=== PATIENT | male | born 1950 | race Caucasian/White ===

== ENCOUNTER 2020-07-15 23:32 | Inpatient (IN) | payer MEDICARE, MEDICAID, SELFPAY ==
[2020-07-18 03:59] VITALS: BMI 25.0
[2020-07-19] VITALS: BP 135/81; PULSE 88; RESP 18; TEMP 36.6; O2SAT 96
[2020-07-19] MEDS: cefEPime HCl 2 GM in 0.9 % Sodium Chloride 50 ML IV ×2 (01:05→08:57)
[2020-07-19 04:00] VITALS: BP 108/70; PULSE 78; RESP 18; TEMP 36.6; O2SAT 99
[2020-07-19 06:30] LABS: INTERNATIONAL NORM RATIO 1.4 (0.9-1.1); Prothrombin Time 16.1 SEC (10.8-13.0)
[2020-07-19] MEDS: Albuterol/Iprat 2.5/0.5MG 3 ML AMPUL.NEB INHALE ×3 (07:56→15:04)
[2020-07-19 08:00] VITALS: BP 120/72; PULSE 88; RESP 20; TEMP 36.6; O2SAT 97
[2020-07-19] MEDS: Gabapentin 100 MG CAPSULE PO (09:05)
[2020-07-19] MEDS: traMADoL HCL 50 MG TABLET PO (09:05)
[2020-07-19 09:07] VITALS: BP 135/81; PULSE 88
[2020-07-19] MEDS: lisinopriL 5 MG TABLET PO (09:07)
[2020-07-19] MEDS: Furosemide 20 MG TABLET PO (09:07)
[2020-07-19] MEDS: Aspirin 81 MG TAB.CHEW 162 MG PO (09:07)
[2020-07-19] MEDS: Cyanocobalamin (Vitamin B-12) 1,000 MCG TABLET 1000 MCG PO (09:07)
[2020-07-19] MEDS: 0.9 % Sodium Chloride Flush 3 ML SYRINGE 2 ML IVFLUSH ×2 (09:07)
[2020-07-19] MEDS: Finasteride 5 MG TABLET PO (09:07)
[2020-07-19 09:08] VITALS: BP 135/81; PULSE 88
[2020-07-19] MEDS: dilTIAZem HCL CD 120 MG CAP.ER.DEG PO (09:08)
--- NOTE | 2020-07-19 11:40 | PM.DS ---
DS: Providers Provider Date of admission: 07/15/20 23:32 Primary care physician: Rajinder Jean MD Consults: 07/18/20 04:05 Consult to Infectious Diseases Routine Consulting Provider: Serenity Espinosa Reason for consultation: pseudomonas UTI Has provider been notified: Yes 07/18/20 04:06 Consult to Cardiology Routine Consulting Provider: Serenity Espinosa Reason for consultation: aflutter Has provider been notified: Yes 07/19/20 09:59 Consult to Pulmonology Routine Consulting Provider: Aidan Aguayo Reason for consultation: copd DS: Diagnosis Discharge Diagnosis (1) Atrial fibrillation with RVR: Status: Acute (2) Sepsis: Status: Acute (3) UTI (urinary tract infection): Status: Acute (4) Urinary retention: Status: Acute DS: Summary Hospital Course Hospital Course: 70-year-old male admitted with sepsis secondary to UTI patient was started on cefepime and blood culture and urine culture were sent, sepsis resolved blood cultures were negative so urine culture grew Pseudomonas, id was consulted recommended switched to p.o. Levaquin on discharge, patient was also noted to have recurrent episodes of a flutter and converting spontaneously into sinus rhythm, with heart rate ranging between 70s to 150s, cardiology was consulted patient was started on Cardizem , heart rate improved and remained stable, discussed with pulmonology for patient's COPD Dr. Aguayo, patient was started on Breo and continued on nebulizer, patient will follow up cardiology Dr. Rodriguez and pulmonology Dr. Aguayo as outpatient, patient was stable evaluated by Physical therapy recommended short-term rehab, patient was discharged to short-term rehab Status at Discharge Functional status at discharge: independent ambulation Time Spent with Patient Time attestation: Total time spent providing and/or coordinating discharge services: Time spent: Greater than 30 minutes Physical Exam Vital Signs and I&O and Narrative: Vital Signs and I&O: Vital Signs Temp 98 F 07/19/20 08:00 Pulse 88 07/19/20 09:08 Resp 20 07/19/20 08:00 BP 135/81 07/19/20 09:08 Pulse Ox 97 07/19/20 08:00 Intake & Output 07/18/20 07/19/20 07/19/20 18:59 06:59 18:59 Intake Total 50 / 50 50 / 50 Output Total 340 / 340 Balance -290 / -290 50 / 50 Urine Output (Aver age ml/kg/hr) 0.33 0.33 Intake: Intake, IV Amoun t 50 / 50 50 / 50 cefEPime HCl 2 gm In 0.9 % 50 / 50 50 / 50 Sodium Chlorid e 50 ml @ 100 mls /hr IV Q8H [facility] Rx#:[id number] Output: Output, Urine Am ount 340 / 340 Other: Urine johnson Urine Color Yellow Body Mass Index 25.0 Const: General: comfortable Neck: Neck: Yes normal visual inspection Resp: Auscultation: diminished lung sounds Cardio: Jugular venous distension: no JVD GI: Auscultation: normal bowel sounds DS: Data Data Completed and Pending Labs on day of discharge: Labs from last 24 hours 07/19/20 07/19/20 07/18/20 07:00 05:30 05:47 WBC RBC Hgb Hct MCV MCH MCHC RDW Coeff of Ivan Plt Count MPV Immature Gran % (Auto) Neut % (Auto) Lymph % (Auto) Hughes % (Auto) Eos % (Auto) Baso % (Auto) Abs Immat Gran (auto) Absolute Lymphs (auto) Absolute Monos (auto) Absolute Eos (auto) Absolute Basos (auto) Absolute Nucleated RBC Nucleated RBC % (auto) Absolute Neutrophils PT Not Rcvd 16.1 H 14.5 H INR Not Rcvd 1.4 H 1.2 H Sodium Potassium Chloride Bicarbonate Anion Gap BUN Creatinine Estimated Creat Clear Est GFR (Non-Af Amer) Random Glucose Fasting Glucose Calcium 07/17/20 07/17/20 07/17/20 05:50 05:50 05:50 WBC 8.1 RBC 3.41 L Hgb 8.9 L Hct 29.6 L MCV 86.8 MCH 26.1 L MCHC 30.1 L RDW Coeff of Ivan 17.2 H Plt Count 328 MPV 9.3 L Immature Gran % (Auto) 0.2 Neut % (Auto) 75.7 H Lymph % (Auto) 11.5 L Hughes % (Auto) 9.0 Eos % (Auto) 3.2 Baso % (Auto) 0.4 Abs Immat Gran (auto) 0.02 Absolute Lymphs (auto) 0.9 L Absolute Monos (auto) 0.7 Absolute Eos (auto) 0.3 Absolute Basos (auto) 0.0 Absolute Nucleated RBC 0.000 Nucleated RBC % (auto) 0.0 Absolute Neutrophils 6.1 PT 14.8 H INR 1.2 H Sodium 139 Potassium 4.4 Chloride 107 Bicarbonate 25 Anion Gap 11 L BUN 14 Creatinine 0.71 Estimated Creat Clear 110.9 Est GFR (Non-Af Amer) > 60 Random Glucose 100 Fasting Glucose Calcium 8.3 L 07/16/20 07/16/20 07/16/20 05:59 05:49 05:49 WBC 12.9 H RBC 3.28 L Hgb 8.5 L Hct 28.1 L MCV 85.7 MCH 25.9 L MCHC 30.2 L RDW Coeff of Ivan 17.2 H Plt Count 323 MPV 9.2 L Immature Gran % (Auto) 0.5 H Neut % (Auto) 80.9 H Lymph % (Auto) 8.5 L Hughes % (Auto) 8.9 Eos % (Auto) 1.0 Baso % (Auto) 0.2 Abs Immat Gran (auto) 0.06 H Absolute Lymphs (auto) 1.1 L Absolute Monos (auto) 1.2 Absolute Eos (auto) 0.1 Absolute Basos (auto) 0.0 Absolute Nucleated RBC 0.000 Nucleated RBC % (auto) 0.0 Absolute Neutrophils 10.5 H PT 16.7 H D INR 1.4 H Sodium 135 Potassium 4.1 Chloride 107 Bicarbonate 23 Anion Gap 9 L BUN 19 H Creatinine 0.72 Estimated Creat Clear 109.4 Est GFR (Non-Af Amer) > 60 Random Glucose Fasting Glucose 95 Calcium 7.9 L D Discharge Plan Discharge Anticipated Discharge Date/Time: 07/19/20 11:19 Patient Disposition: Xfer SNF Referrals: [facility] [Other] Po,Rajinder Lopez MD [Primary Care Provider] - Discharge Medications: New warfarin [Jantoven] 6 mg Tablet 6 mg PO DAILY@1800 10 Days Qty: 0 RF: 0 Breo Ellipta 100-25 mcg/dose Blister With Device 1 ea inhalation RDAILY Qty: 1 RF: 0 diltiazem HCl [Cardizem CD] 180 mg capsule,extended release 24hr 180 mg PO DAILY Qty: 30 RF: 0 atorvastatin 20 mg Tablet 20 mg PO BEDTIME 30 Days Qty: 30 RF: 0 levofloxacin 500 mg tablet 500 mg PO Q24H Qty: 10 RF: 0 Continued ipratropium-albuterol 0.5 mg-3 mg(2.5 mg base)/3 mL Solution For Nebulization 3 ml INHALATION QID RF: 0 cyanocobalamin (vitamin B-12) 1,000 mcg Tablet 1,000 mcg PO DAILY RF: 0 tramadol 50 mg Tablet 50 mg PO TID RF: 0 tamsulosin [Flomax] 0.4 mg Capsule 0.4 mg PO DAILY@1700 RF: 0 aspirin 81 mg Tablet 162 mg PO DAILY RF: 0 lisinopril 5 mg Tablet 5 mg PO DAILY RF: 0 furosemide 20 mg Tablet 20 mg PO QAM RF: 0 gabapentin 100 mg Capsule 100 mg PO DAILY RF: 0 finasteride [Proscar] 5 mg Tablet 5 mg PO DAILY RF: 0 Discontinued simvastatin 40 mg Tablet 40 mg PO BEDTIME RF: 0 warfarin [Coumadin] 4 mg Tablet 4 mg PO DAILY@1700 RF: 0 Discharge Orders: Discharge Order (Routine); Ordered 07/19/20 Ordered By: Nando Mata Activity on Discharge: As tolerated Discharge Date/Time: 07/19/20 16:22 Visit Report Forms: Patient Portal Discharge page Care Plan Goals: See discharge instructions Plan of Treatment: see discharge instructions
[2020-07-19 12:00] VITALS: BP 129/81; PULSE 98; RESP 20; TEMP 37.1; O2SAT 97
--- NOTE | 2020-07-19 16:30 | PC.NURSE ---
IV REMOVED, DSG CDI. TELEMETRY PACK REMOVED AND PLACED ON RACK BEHIND DRY KILN BURNER DESK. REPORT CALLED TO CEASAR RON, GIVE TO NURSE ABDIRASHID. PT TX BY AMBULANCE.
--- NOTE | 2020-07-19 21:12 | CONS_ITS ---
DATE OF SERVICE: 07/19/2020 CHIEF COMPLAINT: Shortness of breath. HISTORY OF PRESENT ILLNESS: Mr. East is a 70-year-old gentleman, known COPD, O2 dependent emphysema with a history of aortic aneurysm, status post endovascular stenting; hypertension; who apparently was in usual state of health until recently when he started developing worsening constitutional symptoms along with worsening respiratory symptoms. He was confused. He also had some fevers. He was brought to the [facility] ED, and he was treated for Pseudomonas UTI. The patient also had COPD exacerbation. During the hospital course, he also developed cardiac arrhythmias with atrial fibrillation and a flutter. The patient was seen by Cardiology. Currently, he is on rate-controlling agents. The patient has been doing better. Currently, he is awaiting pulmonary rehabilitation. He is currently on oxygen. He is concerned about his respiratory status. Still complaining of dyspnea on exertion with minimal activity. Moderate in severity. REVIEW OF SYSTEMS: Ten systems reviewed. Denies any PUBLISHING EDITOR symptoms. Complains of respiratory and cardiac symptoms. Complains of symptoms. Denies any GI symptoms. Complains of generalized weakness. The rest of the 10-organ system is negative. PAST MEDICAL HISTORY: 1. COPD, O2 dependent. 2. Hyponatremia. 3. Hematuria. 4. AAA. 5. Abdominal aortic aneurysm, status post repair. 6. Abdominal aortic thrombosis. 7. Hypertension. PAST SURGICAL HISTORY: Hernia repair, AAA repair. FAMILY HISTORY: Hypertension. SOCIAL HISTORY: Former smoker. Lives with his son. ALLERGIES: PLEASE REFER TO THE MAR FOR THE FULL LIST. MEDICATIONS: Currently on Coumadin, diltiazem, cefepime, Zofran, lisinopril, gabapentin, aspirin, Lasix, DuoNeb. PHYSICAL EXAMINATION: VITAL SIGNS: Stable, 2 L, saturating 97%. GENERAL: Pleasant gentleman, in no acute distress. HEENT: Pupils equal and reactive to light. Oropharynx clear. LUNGS: Diminished. Some expiratory wheezing noted. No rhonchi appreciated. No crackles appreciated. CARDIAC: Irregularly regular. ABDOMEN: Positive bowel sounds. Soft. EXTREMITIES: No clubbing, cyanosis. LABORATORY DATA: Sodium 131, BUN 25, creatinine 1.05. His white count 6.3, hemoglobin 9.7, platelet count 452. DIAGNOSTIC DATA: X-ray personally reviewed by me. Evidence of TRAM track and suggesting chronic bronchitis, hyperinflation. Also, had a CT scan of the abdomen with some lung windows demonstrating some bronchitis and likely bronchiectatic airways. ASSESSMENT: Mr. East is a 70-year-old gentleman, known chronic obstructive pulmonary disease, presenting with multiple complaints including fevers, confusion, shortness of breath, now being treated for chronic obstructive pulmonary disease exacerbation. IMPRESSION: 1. Chronic obstructive pulmonary disease exacerbation. 2. Acute on chronic hypoxic respiratory failure secondary to chronic obstructive pulmonary disease exacerbation emphysema, likely also has a component of chronic bronchitis and bronchiectasis. 3. Tachyarrhythmias with atrial fibrillation, atrial flutter, currently on rate-controlling agents. We have to be careful with the beta agonist medications for him. 4. Abnormal chest x-ray. RECOMMENDATIONS: 1. Continue with current respiratory regimen. We will add Spiriva and Breo to his regimen. 2. Continue with the oxygen to maintain a pulse ox above 88%. 3. The patient needs to follow up his abnormal chest x-rays when he comes into the office. 4. He also will need additional evaluation with pulmonary function studies and a 6-minutes walk test to assess his oxygen requirements as an outpatient. 5. We will make sure that once he is discharged to the hospital after he goes to rehab, then is an established patient in our office, so we can follow him closely with his ongoing respiratory issues. Further recommendation based on forthcoming data. MD ISIDRA Jenkins/LIV / [id number]
== END 2020-07-19 16:22 | disposition skilled nursing facility (03) | DRG 871 ==
PROVIDERS: Admitting Provider Internal Medicine; Emergency Provider Emergency Medicine; PCP Internal Medicine; Visit Provider Internal Medicine
DX: A41.9 Sepsis, unspecified organism (principal); G92 Toxic encephalopathy; N39.0 Urinary tract infection, site not specified; B96.5 Pseudomonas (aeruginosa) (mallei) (pseudomallei) as the cause of diseases classified elsewhere; J44.9 Chronic obstructive pulmonary disease, unspecified; R31.9 Hematuria, unspecified; I48.0 Paroxysmal atrial fibrillation; Z20.828 Contact with and (suspected) exposure to other viral communicable diseases; Z79.01 Long term (current) use of anticoagulants; Z79.82 Long term (current) use of aspirin; Z79.891 Long term (current) use of opiate analgesic; Z79.899 Other long term (current) drug therapy; Z99.81 Dependence on supplemental oxygen; Z66 Do not resuscitate
CPT/HCPCS: 36415; 71045; 80048; 80051; 80076; 81001; 82565; 82947; 83605; 83690; 84520; 85025; 85027; 85610; 87040; 87077; 87088; 87186; 93005; 94640; 96361; 96374; 97116; 97162; 97166; 97530; 99285; J0692; J2543; U0003

== ENCOUNTER 2020-07-20 06:57 | Outpatient (REF) | payer MEDICARE, MEDICAID, SELFPAY ==
[2020-07-20 07:33] LABS: Hematocrit 31.1 % (42-52); Hemoglobin 9.4 g/dl (14.0-18.0); Mean Corpuscular HGB Conc 30.2 g/dl (31.0-36.0); Mean Corpuscular Volume 86.1 fL (80-98); Mean Platelet Volume 9.3 fL (9.4-12.4); Platelet Count 377 X10*3/uL (160-400); Red Blood Count 3.61 X10*6/uL (4.60-5.80); Red Cell Distribution Width 17.1 % (11.0-16.0); White Blood Count 7.8 X10*3/uL (4.8-10.8)
[2020-07-20 07:52] LABS: INTERNATIONAL NORM RATIO 1.4 (0.9-1.1); Prothrombin Time 16.6 SEC (10.8-13.0)
[2020-07-20 08:03] LABS: Alanine Aminotransferase 18 U/L (0-40); Albumin Level 3.4 g/dL (3.5-5.0); Alkaline Phosphatase 93 U/L (39-117); Anion Gap 10 (12-20); Aspartate Amino Transferase 13 U/L (5-37); Bilirubin Total 0.2 mg/dL (0.0-1.0); Blood Urea Nitrogen 19 mg/dL (9-16); Calcium 8.6 mg/dL (8.4-10.2); Carbon Dioxide 29 mmol/L (22-29); Chloride 104 mmol/L (96-108); Estimated Glomerular Filt Rate > 60; Glucose Random 99 mg/dL (60-115); Potassium 4.1 mmol/l (3.3-5.1); Sodium 139 mmol/L (135-145); Total Protein 5.9 g/dL (6.5-8.0)
== END 2020-07-20 06:58 | disposition home or self-care (01) ==
LOC: HO.MMNH1L 06:57
PROVIDERS: Visit Provider Family Medicine
DX: N39.0 Urinary tract infection, site not specified (principal)
CPT/HCPCS: 36415; 80053; 85027; 85610

== ENCOUNTER 2020-07-23 | Outpatient (REF) | payer MEDICARE, MEDICAID, SELFPAY ==
[2020-07-23 07:49] LABS: Hematocrit 31.1 % (42-52); Hemoglobin 9.4 g/dl (14.0-18.0); Mean Corpuscular HGB Conc 30.2 g/dl (31.0-36.0); Mean Corpuscular Hemoglobin 26.2 pg (27.0-33.0); Mean Corpuscular Volume 86.6 fL (80-98); Mean Platelet Volume 9.2 fL (9.4-12.4); Platelet Count 378 X10*3/uL (160-400); Red Blood Count 3.59 X10*6/uL (4.60-5.80); Red Cell Distribution Width 17.2 % (11.0-16.0); White Blood Count 5.5 X10*3/uL (4.8-10.8)
[2020-07-23 07:57] LABS: INTERNATIONAL NORM RATIO 1.8 (0.9-1.1)
[2020-07-23 08:17] LABS: Alanine Aminotransferase 21 U/L (0-40); Albumin Level 3.4 g/dL (3.5-5.0); Alkaline Phosphatase 88 U/L (39-117); Anion Gap 11 (12-20); Aspartate Amino Transferase 14 U/L (5-37); Bilirubin Total 0.2 mg/dL (0.0-1.0); Blood Urea Nitrogen 14 mg/dL (9-16); Calcium 8.3 mg/dL (8.4-10.2); Carbon Dioxide 29 mmol/L (22-29); Chloride 103 mmol/L (96-108); Estimated Glomerular Filt Rate > 60; Glucose Random 84 mg/dL (60-115); Potassium 4.5 mmol/l (3.3-5.1); Sodium 138 mmol/L (135-145); Total Protein 5.8 g/dL (6.5-8.0)
== END 2020-07-23 00:01 | disposition home or self-care (01) ==
LOC: HO.MMNH1L
PROVIDERS: Visit Provider Family Medicine
DX: N39.0 Urinary tract infection, site not specified (principal)
CPT/HCPCS: 36415; 80053; 85027; 85610

== ENCOUNTER 2020-07-25 06:48 | Outpatient (REF) | payer MEDICARE, MEDICAID, SELFPAY ==
[2020-07-25 07:46] LABS: Appearance Urine CLOUDY; Color Urine YELLOW; Glucose Urine UA NEG (NEG); Leukocyte Esterase Urine NEG (NEG); Nitrite Urine NEG (NEG); Urine Blood 3+ (NEG); Urine Ketones NEG (NEG); Urine Protein TRACE MG/DL (NEG-TRACE)
[2020-07-25 07:49] LABS: INTERNATIONAL NORM RATIO 1.5 (0.9-1.1); Prothrombin Time 17.8 SEC (10.8-13.0)
[2020-07-25 07:57] LABS: RBC Urine TNTC /HPF (0)
[2020-07-25 07:58] LABS: Amorphous Sediment Urine 1+ /LPF; Mucus Urine 1+ /LPF; Squamous Epithelial Cell Urine TRACE /LPF
== END 2020-07-25 06:49 | disposition home or self-care (01) ==
LOC: HO.MMNH1L 06:48
PROVIDERS: Visit Provider Family Medicine
DX: R31.9 Hematuria, unspecified (principal); I48.91 Unspecified atrial fibrillation
CPT/HCPCS: 36415; 81001; 81003; 85610; 87086

== ENCOUNTER 2020-07-30 | Outpatient (REF) | payer MEDICARE, MEDICAID, SELFPAY ==
[2020-07-30 06:23] LABS: INTERNATIONAL NORM RATIO 1.7 (0.9-1.1); Prothrombin Time 19.7 SEC (10.8-13.0)
[2020-07-30 06:24] LABS: Hematocrit 33.7 % (42-52); Hemoglobin 10.1 g/dl (14.0-18.0); Mean Corpuscular Hemoglobin 25.8 pg (27.0-33.0); Mean Corpuscular Volume 86.2 fL (80-98); Mean Platelet Volume 8.7 fL (9.4-12.4); Platelet Count 510 X10*3/uL (160-400); Red Blood Count 3.91 X10*6/uL (4.60-5.80); Red Cell Distribution Width 17.5 % (11.0-16.0); White Blood Count 6.2 X10*3/uL (4.8-10.8)
[2020-07-30 06:55] LABS: Anion Gap 11 (12-20); Blood Urea Nitrogen 13 mg/dL (9-16); Calcium 8.7 mg/dL (8.4-10.2); Carbon Dioxide 31 mmol/L (22-29); Chloride 100 mmol/L (96-108); Estimated Glomerular Filt Rate > 60; Glucose Random 91 mg/dL (60-115); Potassium 4.9 mmol/l (3.3-5.1); Sodium 137 mmol/L (135-145)
== END 2020-07-30 00:01 | disposition home or self-care (01) ==
LOC: HO.MMNH1L
PROVIDERS: Visit Provider Family Medicine
DX: I48.91 Unspecified atrial fibrillation (principal)
CPT/HCPCS: 36415; 80048; 85027; 85610

== ENCOUNTER 2020-08-01 18:46 | Emergency (ER) | payer MEDICARE, MEDICAID, SELFPAY ==
[2020-08-01 19:04] VITALS: BP 117/79; BP 130/90; PULSE 74; PULSE 84; RESP 16; TEMP 37.2; O2SAT 100; BMI 23.1
--- NOTE | 2020-08-01 19:28 | ED_ITS ---
HPI - Psych General Chief Complaint: Psychiatric Symptoms Stated Complaint: SECTION 12/SI Time Seen by Provider: 08/01/20 19:12 Source: patient and EMS Mode of arrival: EMS Limitations: no limitations History of Present Illness HPI Narrative: patient with benign prostate hypertrophy with indwelling Sauceda catheter since 07/08 feels overwhelmed unable to manage and depressed today when his son was leaving the house he said goodbye and when he came back within 5 minutes patient took his oxygen off and confirmed that he wanted to . Patient also had Pseudomonas in urine and has taken Levaquin patient discharged home on 07/19 for UTI MD complaint: suicidal ideation and feels depressed Onset (ago): day(s) ( several) Duration: constant History of same: No Related Data Home Medications Medication Instructions Recorded Confirmed aspirin 162 mg PO DAILY 07/18/20 07/18/20 cyanocobalamin (vitamin B-12) 1,000 mcg PO DAILY 07/18/20 07/18/20 finasteride [Proscar] 5 mg PO DAILY 07/18/20 07/18/20 furosemide 20 mg PO QAM 07/18/20 07/18/20 gabapentin 100 mg PO DAILY 07/18/20 07/18/20 ipratropium-albuterol 3 ml INHALATION QID 07/18/20 07/18/20 lisinopril 5 mg PO DAILY 07/18/20 07/18/20 tamsulosin [Flomax] 0.4 mg PO DAILY@1700 07/18/20 07/18/20 tramadol 50 mg PO TID 07/18/20 07/18/20 Previous Rx's Medication Instructions Recorded atorvastatin 20 mg PO BEDTIME 30 Days #30 tab 07/19/20 diltiazem HCl [Cardizem CD] 180 mg PO DAILY #30 cap 07/19/20 fluticasone furoate-vilanterol 1 ea INHALATION RDAILY #1 ea 07/19/20 [Breo Ellipta] levofloxacin 500 mg PO Q24H #10 tab 07/19/20 warfarin [Jantoven] 6 mg PO DAILY@1800 10 Days #0 tab 07/19/20 Allergies Allergy/AdvReac Type Severity Reaction Status Date / Time nicotine Allergy Unknown patch Verified 05/21/20 00:00 No Known Allergies Allergy Unknown unknown Unverified 07/05/20 17:19 [NO KNOWN ALLERGIES] Review of Systems Review of Systems: Constitutional : No Fever, No Chills ENT/Mouth : No Ear Pain, No Nasal Congestion, No sore throat Eyes: No Eye Pain, No Swelling, No Redness Cardiovascular : No Chest Pain, No SOB Respiratory : No Cough, No Sputum, No Dyspnea Gastrointestinal : No Nausea, No Vomiting, No Diarrhea, No Hematochezia, No Melena Genitourinary : urinary retention with indwelling Sauceda catheter Musculoskeletal : No Myalgias Skin : No Skin Lesions, No rash Neuro : No Weakness, No Numbness, No Paresthesias, No Dizziness, No Headache Psych : positive Anxiety, positive Depression, positive SI Heme/Lymph: No Lymphadenopathy Endocrine : No Polyuria, No Polydipsia PMFSH Past Medical History Medical History Atrial fibrillation COPD (chronic obstructive pulmonary disease) Emphysema of lung Enlarged prostate Sauceda catheter in place Social History Social History Alcohol intake: never Smoking Status: Former smoker Use of substances other than those prescribed or required for medical reasons: No Advance Directives: No Advance Directives Information Provided: No Advance Directives Date on File: 07/24/05 Physical Exam Vital Signs: Vital Signs: Vital Signs Temp Pulse Resp BP Pulse Ox 08/02/20 01:03 67 20 97/63 100 08/01/20 22:00 97.6 F 88 16 107/70 100 08/01/20 20:00 98.5 F 94 17 108/59 L 99 08/01/20 19:04 99 F 84 16 117/79 100 Body Mass Index 23.1 Appearance: Alert. Oriented X3. No acute distress. Eyes: Pupils equal, round and reactive to light. ENT: Pharynx normal. Neck: Normal inspection. Neck supple. CVS: Normal heart rate and rhythm. Pulses normal. Respiratory: No respiratory distress. Breath sounds normal. Abdomen: Soft and nontender. indwelling Sauceda catheter Skin: Skin warm and dry. Normal skin color. Normal skin turgor. Extremities: No lower extremity edema. Good range of movement patient feel depressed and suicidal Neuro: Oriented X 3. No motor deficit. No sensory deficit. Course Course Course Narrative: case seen by care team came here for anxiety depression and suicidal feeling at home at this time patient denies any suicidal feeling after discussion with care team it is felt that patient needs some help at home and maybe need case management to see him in the morning patient's labs are stable has a chronic UTI which is getting better on p.o. Levaquin Reevaluation(s) Reevaluation #1: patient signed out to Dr. Haji Time: 01:45 MDM - Psych Restraints Face to Face Assessment: Face to Face Assessment: Current Situation: After assessment of the patient, a review of the pertinent medical record and a discussion with nursing staff, I feel the patient requires a restrain intervention. Reaction To: [] Medical Condition: [] Behavioral State: [] Continued Need: [] Lab Data Result diagrams: 08/01/20 20:15 08/01/20 20:15 Labs: Lab Results 08/01/20 08/01/20 08/01/20 Range/Units 20:15 20:15 20:15 WBC 7.4 (4.8-10.8) X10*3/uL RBC 4.02 L (4.60-5.80) X10*6/uL Hgb 10.3 L (14.0-18.0) g/dl Hct 33.8 L (42-52) % MCV 84.1 (80-98) fL MCH 25.6 L (27.0-33.0) pg MCHC 30.5 L (31.0-36.0) g/dl RDW 17.4 H (11.0-16.0) % Plt Count 464 H (160-400) X10*3/uL MPV 8.6 L (9.4-12.4) fL Immature Gran % (Auto) 0.3 (0.0-0.4) % Neut % (Auto) 65.8 (45-73) % Lymph % (Auto) 19.6 L (20-40) % [place] % (Auto) 12.2 H (2-11) % Eos % (Auto) 1.6 (0-4) % Baso % (Auto) 0.5 (0-2) % Lymph # (Auto) 1.5 (1.2-4.9) X10*3/uL [place] # (Auto) 0.9 (0.1-1.2) X10*3/uL Eos # (Auto) 0.1 (0.0-0.4) X10*3/uL Baso # (Auto) 0.0 (0.0-0.2) X10*3/uL Abs Immat Gran (auto) 0.02 (0.00-0.03) X10*3/uL Absolute Neuts (auto) 4.9 (2.0-8.3) X10*3/uL Absolute Nucleated RBC 0.000 (0.0-0.012) X10*3/uL Nucleated RBC % (auto) 0.0 (0.0-0.2) /100WBC PT 26.4 H D (10.8-13.0) SEC INR 2.2 H (0.9-1.1) Sodium (135-145) mmol/L Potassium (3.3-5.1) mmol/l Chloride (96-108) mmol/L Carbon Dioxide (22-29) mmol/L Anion Gap (12-20) BUN (9-16) mg/dL Creatinine (0.5-1.4) mg/dL Estim Creat Clear Calc Estimated GFR Random Glucose (60-115) mg/dL Lactic Acid 0.8 (0.5-2.0) mmol/L Calcium (8.4-10.2) mg/dL Total Bilirubin (0.0-1.0) mg/dL Direct Bilirubin (0.0-0.5) mg/dL AST (5-37) U/L ALT (0-40) U/L Alkaline Phosphatase (39-117) U/L Total Protein (6.5-8.0) g/dL Albumin (3.5-5.0) g/dL Urine Color Urine Appearance Urine pH (5.0-8.0) Ur Specific [place] (1.005-1.025) Urine Protein (NEG-TRACE) MG/DL Urine Glucose (UA) (NEG) MG/DL Urine Ketones (NEG) MG/DL Urine Blood (NEG) Urine Nitrite (NEG) Ur Leukocyte Esterase (NEG) Urine RBC (0) /HPF Urine WBC (0-4) /HPF Ur Squamous Epith Cells /LPF Urine Bacteria /LPF 08/01/20 08/01/20 Range/Units 20:15 20:15 WBC (4.8-10.8) X10*3/uL RBC (4.60-5.80) X10*6/uL Hgb (14.0-18.0) g/dl Hct (42-52) % MCV (80-98) fL MCH (27.0-33.0) pg MCHC (31.0-36.0) g/dl RDW (11.0-16.0) % Plt Count (160-400) X10*3/uL MPV (9.4-12.4) fL Immature Gran % (Auto) (0.0-0.4) % Neut % (Auto) (45-73) % Lymph % (Auto) (20-40) % [place] % (Auto) (2-11) % Eos % (Auto) (0-4) % Baso % (Auto) (0-2) % Lymph # (Auto) (1.2-4.9) X10*3/uL [place] # (Auto) (0.1-1.2) X10*3/uL Eos # (Auto) (0.0-0.4) X10*3/uL Baso # (Auto) (0.0-0.2) X10*3/uL Abs Immat Gran (auto) (0.00-0.03) X10*3/uL Absolute Neuts (auto) (2.0-8.3) X10*3/uL Absolute Nucleated RBC (0.0-0.012) X10*3/uL Nucleated RBC % (auto) (0.0-0.2) /100WBC PT (10.8-13.0) SEC INR (0.9-1.1) Sodium 133 L (135-145) mmol/L Potassium 4.4 (3.3-5.1) mmol/l Chloride 98 (96-108) mmol/L Carbon Dioxide 27 (22-29) mmol/L Anion Gap 12 (12-20) BUN 19 H (9-16) mg/dL Creatinine 0.81 (0.5-1.4) mg/dL Estim Creat Clear Calc 96.6 Estimated GFR > 60 Random Glucose 94 (60-115) mg/dL Lactic Acid (0.5-2.0) mmol/L Calcium 8.9 (8.4-10.2) mg/dL Total Bilirubin 0.3 (0.0-1.0) mg/dL Direct Bilirubin 0.2 (0.0-0.5) mg/dL AST 17 (5-37) U/L ALT 23 (0-40) U/L Alkaline Phosphatase 93 (39-117) U/L Total Protein 6.7 (6.5-8.0) g/dL Albumin 4.0 (3.5-5.0) g/dL Urine Color YELLOW Urine Appearance CLOUDY Urine pH 6.0 (5.0-8.0) Ur Specific [place] >= 1.030 H (1.005-1.025) Urine Protein 2+ H (NEG-TRACE) MG/DL Urine Glucose (UA) NEG (NEG) MG/DL Urine Ketones NEG (NEG) MG/DL Urine Blood 3+ H (NEG) Urine Nitrite NEG (NEG) Ur Leukocyte Esterase 1+ H (NEG) Urine RBC 30-49 H (0) /HPF Urine WBC 1-4 (0-4) /HPF Ur Squamous Epith Cells NONE /LPF Urine Bacteria 1+ /LPF Discharge Plan Discharge Clinical Impression: Depression with suicidal ideation, Chronic UTI Prescriptions: No Action ipratropium-albuterol 0.5 mg-3 mg(2.5 mg base)/3 mL Solution For Nebulization 3 ml INHALATION QID RF: 0 cyanocobalamin (vitamin B-12) 1,000 mcg Tablet 1,000 mcg PO DAILY RF: 0 tramadol 50 mg Tablet 50 mg PO TID RF: 0 tamsulosin [Flomax] 0.4 mg Capsule 0.4 mg PO DAILY@1700 RF: 0 aspirin 81 mg Tablet 162 mg PO DAILY RF: 0 lisinopril 5 mg Tablet 5 mg PO DAILY RF: 0 furosemide 20 mg Tablet 20 mg PO QAM RF: 0 gabapentin 100 mg Capsule 100 mg PO DAILY RF: 0 finasteride [Proscar] 5 mg Tablet 5 mg PO DAILY RF: 0 warfarin [Jantoven] 6 mg Tablet 6 mg PO DAILY@1800 10 Days Qty: 0 RF: 0 Breo Ellipta 100-25 mcg/dose Blister With Device 1 ea inhalation RDAILY Qty: 1 RF: 0 diltiazem HCl [Cardizem CD] 180 mg capsule,extended release 24hr 180 mg PO DAILY Qty: 30 RF: 0 atorvastatin 20 mg Tablet 20 mg PO BEDTIME 30 Days Qty: 30 RF: 0 levofloxacin 500 mg tablet 500 mg PO Q24H Qty: 10 RF: 0
[2020-08-01 20:00] VITALS: BP 108/59; PULSE 94; RESP 17; TEMP 36.9; O2SAT 99
--- NOTE | 2020-08-01 20:17 | PC.NURSE ---
All labs including BCX and UA obtained and sent.
[2020-08-01 20:22] LABS: MANUAL DIFF FLAG NO
[2020-08-01 20:26] LABS: Basophils Percent Auto 0.5 % (0-2); Eosinophils Absolute Auto 0.1 X10*3/uL (0.0-0.4); Eosinophils Percent Auto 1.6 % (0-4); Hematocrit 33.8 % (42-52); Hemoglobin 10.3 g/dl (14.0-18.0); Imm Gran Abs Auto 0.02 X10*3/uL (0.00-0.03); Imm Gran Pct Auto 0.3 % (0.0-0.4); Lymphocytes Absolute Auto 1.5 X10*3/uL (1.2-4.9); Lymphocytes Percent Auto 19.6 % (20-40); Mean Corpuscular HGB Conc 30.5 g/dl (31.0-36.0); Mean Corpuscular Hemoglobin 25.6 pg (27.0-33.0); Mean Corpuscular Volume 84.1 fL (80-98); Mean Platelet Volume 8.6 fL (9.4-12.4); Monocytes Absolute Auto 0.9 X10*3/uL (0.1-1.2); Monocytes Percent Auto 12.2 % (2-11); Neutrophils Absolute Auto 4.9 X10*3/uL (2.0-8.3); Neutrophils Percent Auto 65.8 % (45-73); Platelet Count 464 X10*3/uL (160-400); Red Blood Count 4.02 X10*6/uL (4.60-5.80); Red Cell Distribution Width 17.4 % (11.0-16.0); White Blood Count 7.4 X10*3/uL (4.8-10.8)
[2020-08-01 20:31] LABS: INTERNATIONAL NORM RATIO 2.2 (0.9-1.1); Prothrombin Time 26.4 SEC (10.8-13.0)
[2020-08-01 20:36] LABS: Glucose Urine UA NEG (NEG); Leukocyte Esterase Urine 1+ (NEG); Nitrite Urine NEG (NEG); Specific Gravity - Urine >= 1.030 (1.005-1.025); Urine Blood 3+ (NEG); Urine Ketones NEG (NEG); Urine Protein 2+ MG/DL (NEG-TRACE)
[2020-08-01 20:38] LABS: Appearance Urine CLOUDY; Color Urine YELLOW
[2020-08-01 20:45] LABS: Bacteria Urine 1+ /LPF; RBC Urine 30-49 /HPF (0)
[2020-08-01 20:50] LABS: Lactic Acid 0.8 mmol/L (0.5-2.0)
[2020-08-01 20:55] LABS: Alanine Aminotransferase 23 U/L (0-40); Alkaline Phosphatase 93 U/L (39-117); Anion Gap 12 (12-20); Aspartate Amino Transferase 17 U/L (5-37); Bilirubin Direct 0.2 mg/dL (0.0-0.5); Bilirubin Total 0.3 mg/dL (0.0-1.0); Blood Urea Nitrogen 19 mg/dL (9-16); Calcium 8.9 mg/dL (8.4-10.2); Carbon Dioxide 27 mmol/L (22-29); Chloride 98 mmol/L (96-108); Creatinine Clr Calc Pharmacy 96.6; Estimated Glomerular Filt Rate > 60; Glucose Random 94 mg/dL (60-115); Potassium 4.4 mmol/l (3.3-5.1); Sodium 133 mmol/L (135-145); Total Protein 6.7 g/dL (6.5-8.0)
[2020-08-01 22:00] VITALS: BP 107/70; PULSE 88; RESP 16; TEMP 36.4; O2SAT 100
--- NOTE | 2020-08-01 23:03 | PC.NURSE ---
[id number] Care Team This RN speaking with Care Team regarding pt condition and status. Per Care Team to call back and let them know once he is medically cleared. aware.
--- NOTE | 2020-08-01 23:18 | PC.NURSE ---
Care Team called as pt is medically cleared by MD Gimenez. Care Team at bedside for eval.
[2020-08-02] VITALS (11 sets, daily range): BP systolic 97–125; BP diastolic 61–74; PULSE 67–99; RESP 14–20; TEMP 37.2–37.4; O2SAT 95–100
--- NOTE | 2020-08-02 00:35 | PC.NURSE ---
Care Team updating this RN on pt condition. Care Team evaluating simon-pysch VS SNF placement. Pt requesting medication for anxiety/sleep at this time. aware.
[2020-08-02] MEDS: LORazepam 1 MG TABLET PO (01:05)
--- NOTE | 2020-08-02 01:06 | PC.NURSE ---
Pt medicated with Ativan per request and EMAR. VSS. Continue to monitor.
--- NOTE | 2020-08-02 02:17 | PC.NURSE ---
in room for eval.
--- NOTE | 2020-08-02 09:58 | PC.NURSE ---
Pt at bedside with pt at this time for evaluation
--- NOTE | 2020-08-02 10:31 | MHC.CM.ED ---
[facility] able to offer a bed. They are in the process of obtaining insurance auth from [facility]. Continue to monitor for d/c needs.
--- NOTE | 2020-08-02 10:35 | PC.NURSE ---
Pharmacy at bedside for med reconcilliation
--- NOTE | 2020-08-02 10:48 | MHC.CM.ED ---
Received case management consult overnight. Patient came in under crisis, cleared by care team. Physical therapy eval is complete. Home therapy is recommended. Attempted to speak to patient's son, Max via telephone at [phone]. Left voicemail requesting return telephone call. Continue to monitor for d/c needs.
--- NOTE | 2020-08-02 18:48 | PC.NURSE ---
?Dispo from case management, care team states pt needs further snf/rehab, doesn't feel TY psych is appropriate. states if CM unable to find proper placement pt should be referred back to CARE team
[2020-08-02] MEDS: traMADoL HCL 50 MG TABLET PO (21:40)
[2020-08-02] MEDS: Furosemide 20 MG TABLET PO (21:41)
[2020-08-02] MEDS: Atorvastatin Calcium 20 MG TABLET PO (21:41)
[2020-08-03 02:56] VITALS: BP 117/52; PULSE 71; RESP 12; O2SAT 96
[2020-08-03 06:36] VITALS: BP 108/60; PULSE 90; RESP 16; TEMP 36.6; O2SAT 94
--- NOTE | 2020-08-03 06:59 | PC.NURSE ---
RECEIVED REPORT FROM VALERIE ASTUDILLO PT IS CURRENTLY UP AND EATING BREAKFAST, RESPIRATIONS EVEN AND UNLABORED
[2020-08-03 07:30] VITALS: BP 105/56; PULSE 67; RESP 18; TEMP 36.8; O2SAT 99
[2020-08-03 07:45] VITALS: BP 105/56; PULSE 77; RESP 18; TEMP 36.8; O2SAT 99
--- NOTE | 2020-08-03 07:48 | PC.NURSE ---
pt resting quietly in the stretcher, pt alert and oriented, skin pwd, respirations even and unlabored, pt denies si/hi, would like to go home, pt is wearing his oxygen at 2l, Sauceda draining well, empties 1000m of darker yellow urine
--- NOTE | 2020-08-03 09:26 | MHC.CM.ED ---
pt is cleared to go home c care of family . no other svcs. the son was called and a message has been left regarding this and that patient will need a ride home. this has been conveyed to the rn and hcp in the e.d. caring for patient. cm to cont. to follow.
[2020-08-03 09:45] VITALS: BP 135/84; PULSE 72; RESP 18; TEMP 37.1; O2SAT 96
[2020-08-03 10:00] LABS: INTERNATIONAL NORM RATIO 1.7 (0.9-1.1); Prothrombin Time 20.5 SEC (10.8-13.0)
--- NOTE | 2020-08-03 14:07 | MHC.CARE ---
lLate Entry 11am: CARE Team was not aware of pending discharge until Pt had been discharged home. CARE Team discussed case with case management after discharge. Pt discharged with in-home VNA services. CARE Team left a voicemail on Pts son phone to provide additional behavioral health support for Pts return home.
== END 2020-08-03 09:55 | disposition home or self-care (01) ==
PROVIDERS: Internal Medicine; Emergency Provider Internal Medicine
DX: F33.1 Major depressive disorder, recurrent, moderate (principal); R45.851 Suicidal ideations; N39.0 Urinary tract infection, site not specified; N40.0 Benign prostatic hyperplasia without lower urinary tract symptoms; Z79.899 Other long term (current) drug therapy
CPT/HCPCS: 36415; 80048; 80076; 81001; 83605; 85025; 85610; 87040; 87086; 87088; 87186; 97161; 99285

== ENCOUNTER 2020-08-08 22:42 | Emergency (ER) | payer MEDICARE, MEDICAID, SELFPAY ==
[2020-08-08 22:52] VITALS: BP 96/60; PULSE 85; RESP 18; TEMP 36.7; O2SAT 100; BMI 22.5
[2020-08-09 00:27] VITALS: BP 125/66; PULSE 81; RESP 15; TEMP 37.1; O2SAT 100
--- NOTE | 2020-08-09 01:23 | PC.NURSE ---
PATIENT'S URINARY CATHETER REMOVED WITH SOME DIFFICULTY. TIP OF CATHETER RESISTING AT END OF URTHRA. REMOVED CATHETER. PATIENT URINARY RETENTION OF 400ML. NEW CATHETER INSERTED AND PATIENT D/C HOME
--- NOTE | 2020-08-09 01:33 | ED.GENADULT ---
HPI - General Adult General Chief complaint: General Medical Stated complaint: Catheter issue Time Seen by Provider: 08/09/20 01:33 Source: patient Mode of arrival: ambulatory Limitations: no limitations History of Present Illness HPI narrative: patient was seen in the emergency department for urinary retention and Sauceda catheter insertion secondary to be BPH, patient was taking a shower pulled on the Sauceda catheter start not to drain patient feeling distended bladder scan showed 400 cc retained in the bladder. Related Data Home Medications Medication Instructions Recorded Confirmed aspirin 162 mg PO DAILY 07/18/20 08/09/20 finasteride [Proscar] 5 mg PO DAILY 07/18/20 08/09/20 furosemide 20 mg PO QAM 07/18/20 08/09/20 gabapentin 100 mg PO DAILY 07/18/20 08/09/20 lisinopril 5 mg PO DAILY 07/18/20 08/09/20 tamsulosin [Flomax] 0.4 mg PO DAILY@1700 07/18/20 08/09/20 diltiazem HCl 240 mg PO DAILY 08/02/20 08/09/20 ipratropium-albuterol [Combivent 1 puff INHALATION QID 08/02/20 08/09/20 Respimat] tramadol 1 tab PO TID 08/09/20 08/09/20 Previous Rx's Medication Instructions Recorded atorvastatin 20 mg PO BEDTIME 30 Days #30 tab 07/19/20 fluticasone furoate-vilanterol 1 ea INHALATION RDAILY #1 ea 07/19/20 [Breo Ellipta] VITAMIN B-12 1000MCGTAB See Rx Instructions .ROUTE 08/06/20 .COMPLEX #30 tablet Allergies Allergy/AdvReac Type Severity Reaction Status Date / Time nicotine Allergy Unknown patch Verified 05/21/20 00:00 No Known Allergies Allergy Unknown unknown Unverified 07/05/20 17:19 [NO KNOWN ALLERGIES] Review of Systems Review of Systems: All other systems are reviewed and are negative Constitutional: Reports as per HPI and Reports no additional constitutional complaints Eyes: Reports as per HPI and Reports no additional eye complaints Reports system reviewed and no additional complaints, except as documented Cardiovascular: Reports as per HPI and Reports no additional cardiovascular complaints Respiratory: Reports as per HPI and Reports no additional respiratory complaints Gastrointestinal: Reports as per HPI and Reports no additional gastrointestinal complaints Genitourinary: Reports no additional female genitourinary complaints Musculoskeletal: Reports no additional musculoskeletal complaints Skin/Breast: Reports system reviewed and no additional complaints, except as docu Psychiatric: Reports no additional psychiatric complaints Endocrine: Reports no additional endocrine complaints Hematologic/Lymphatic: Reports no additional hematologic/lymphatic complaints Allergic/Immunologic: Reports no additional allergic/immunologic complaints Reports system reviewed and no additional complaints, except as documented and Reports Abnormal speech present [facility] Past Medical History Medical History Atrial fibrillation COPD (chronic obstructive pulmonary disease) Emphysema of lung Enlarged prostate Sauceda catheter in place Social History Social History Alcohol intake: never Smoking Status: Former smoker Use of substances other than those prescribed or required for medical reasons: No Advance Directives: No Advance Directives Information Provided: Yes Advance Directives Date on File: 07/24/05 Physical Exam Vital Signs: Vital Signs: Vital Signs Temp Pulse Resp BP Pulse Ox 08/09/20 00:27 98.7 F 81 15 125/66 100 08/08/20 22:52 98.1 F 85 18 96/60 100 Body Mass Index 22.5 vital signs have been reviewed as normal and appeared to be correct. Blood pressure normal. Heart rate normal. Respiration rate normal. Temperature normal. Oxygen saturation normal. Appearance: Alert. Oriented X3. No acute distress. Head: Normal external exam. Normocephalic. Atraumatic. No Vargas signs noted. No raccoon eyes noted Eyes: PERRLA. EOMI. Conjunctiva and sclera normal. Eyelids normal. ENT: EAC normal. TM's Normal. Pharynx normal. Uvula midline. Moist mucous membranes. No trismus noted. No drooling noted. No muffled voice noted. Neck: Normal inspection. Neck supple. FROM. No adenopathy. Thyroid Normal. No meningeal signs. No neck mass noted. CVS: Normal heart rate and rhythm. Heart sound normal. No murmurs noted. Pulses normal throughout. Respiratory: No respiratory distress. Painless inspiration. Breath sounds normal. No wheezes/rales/rhonchi noted. Chest nontender. No accessory muscle usage noted or decreased air movement noted. Abdomen: Soft and nontender. Bowel sounds normal in all 4 quadrants. No distention noted. No organomegaly noted. No visible injury noted. Back: No CVA tenderness. Full range of motion noted. Skin: Skin warm and dry. Normal skin color. Normal skin turgor. No rashes/lesions/lacerations noted. Extremities: No lower extremity edema. Extremities exhibit normal range of motion. Extremities nontender. Neuro: Oriented X 3. No motor deficit. No sensory deficit. Reflexes normal. Medical Decision Making MDM Narrative Medical decision making narrative: 70-year-old male with history of BPH require Sauceda catheter placed in the emergency department last week, return today for problem of the catheter that is not draining, the Sauceda catheter was replaced with new 1 now it is draining patient has no symptoms. Will discharge the patient with leg bag and follow up with neurologist as schedule in 2 days. Discharge Plan Discharge Clinical Impression: Urinary retention Problem with Sauceda catheter Qualifiers: Encounter type: initial encounter Qualified Code(s): T83.9XXA - Unspecified complication of genitourinary prosthetic device, implant and graft, initial encounter Patient Disposition: Home, Self-Care Instructions: Sauceda Catheter Placement and Care (ED) Prescriptions: No Action VITAMIN B-12 1000MCGTAB See Rx Instructions .ROUTE .COMPLEX Qty: 30 RF: 5 tamsulosin [Flomax] 0.4 mg Capsule 0.4 mg PO DAILY@1700 RF: 0 aspirin 81 mg Tablet 162 mg PO DAILY RF: 0 lisinopril 5 mg Tablet 5 mg PO DAILY RF: 0 furosemide 20 mg Tablet 20 mg PO QAM RF: 0 gabapentin 100 mg Capsule 100 mg PO DAILY RF: 0 finasteride [Proscar] 5 mg Tablet 5 mg PO DAILY RF: 0 Breo Ellipta 100-25 mcg/dose Blister With Device 1 ea inhalation RDAILY Qty: 1 RF: 0 atorvastatin 20 mg Tablet 20 mg PO BEDTIME 30 Days Qty: 30 RF: 0 diltiazem HCl 240 mg Capsule,Extended Release 24 Hr 240 mg PO DAILY RF: 0 Combivent Respimat 20-100 mcg/actuation Mist 1 puff INHALATION QID RF: 0 tramadol 50 mg tablet 1 tab PO TID RF: 0 Referrals: Po,Rajinder Lopez MD [Primary Care Provider] - 2 days Michael Deutsch MD [Physician] - 2 days
== END 2020-08-09 02:02 | disposition home or self-care (01) ==
PROVIDERS: Emergency Provider Emergency Medicine; PCP Internal Medicine
DX: R33.9 Retention of urine, unspecified (principal); N40.0 Benign prostatic hyperplasia without lower urinary tract symptoms; Z87.891 Personal history of nicotine dependence; Z79.899 Other long term (current) drug therapy
CPT/HCPCS: 99284; 99285

== ENCOUNTER → 2020-08-10 10:20 | Outpatient (BNVA) | payer MEDICARE, MEDICAID, SELFPAY | PROVIDERS: PCP Internal Medicine; Referring Provider Internal Medicine; Visit Provider Urology | DX: N40.1 Benign prostatic hyperplasia with lower urinary tract symptoms (principal); R33.9 Retention of urine, unspecified; Z87.891 Personal history of nicotine dependence; Z79.82 Long term (current) use of aspirin; Z79.899 Other long term (current) drug therapy | CPT/HCPCS: 99214 ==

== ENCOUNTER 2020-08-12 18:52 | Emergency (ER) | payer MEDICARE, MEDICAID, SELFPAY ==
[2020-08-12 18:55] VITALS: BP 106/62; PULSE 86; RESP 19; TEMP 36.7; O2SAT 100; BMI 22.4
[2020-08-12 20:40] VITALS: BP 128/75; PULSE 87; RESP 20; TEMP 37.1; O2SAT 98
[2020-08-12 21:05] LABS: Glucose Urine UA NEG (NEG); Leukocyte Esterase Urine 1+ (NEG); Nitrite Urine POS (NEG); PH 5.5 (5.0-8.0); Specific Gravity - Urine >= 1.030 (1.005-1.025); Urine Blood 3+ (NEG); Urine Ketones NEG (NEG); Urine Protein 2+ MG/DL (NEG-TRACE)
[2020-08-12 21:07] LABS: Appearance Urine CLOUDY; Color Urine YELLOW
[2020-08-12 21:16] LABS: Bacteria Urine 3+ /LPF; RBC Urine TNTC /HPF (0); WBC Urine TNTC /HPF (0-4)
--- NOTE | 2020-08-12 21:18 | ED.MALEGU ---
HPI - Male Genitourinary General Chief complaint: Urogenital-Male Stated complaint: catheter issues Time Seen by Provider: 08/12/20 19:57 Source: patient Mode of arrival: ambulatory Limitations: no limitations History of Present Illness HPI Narrative: 70-year-old male with history of BPH and urinary retention, patient require Sauceda catheter for that reason, patient was seen by urologist on Thursday came back again today feeling burning with the Sauceda catheter. In the emergency department the catheter is draining normally, bladder scan was empty, urine was sent for UA. Related Data Home Medications Medication Instructions Recorded Confirmed aspirin 162 mg PO DAILY 07/18/20 08/10/20 finasteride [Proscar] 5 mg PO DAILY 07/18/20 08/10/20 furosemide 20 mg PO QAM 07/18/20 08/10/20 gabapentin 100 mg PO DAILY 07/18/20 08/10/20 lisinopril 5 mg PO DAILY 07/18/20 08/10/20 tamsulosin [Flomax] 0.4 mg PO DAILY@1700 07/18/20 08/10/20 diltiazem HCl 240 mg PO DAILY 08/02/20 08/10/20 ipratropium-albuterol [Combivent 1 puff INHALATION QID 08/02/20 08/10/20 Respimat] tramadol 1 tab PO TID 08/09/20 08/10/20 Previous Rx's Medication Instructions Recorded atorvastatin 20 mg PO BEDTIME 30 Days #30 tab 07/19/20 fluticasone furoate-vilanterol 1 ea INHALATION RDAILY #1 ea 07/19/20 [Breo Ellipta] VITAMIN B-12 1000MCGTAB See Rx Instructions .ROUTE 08/06/20 .COMPLEX #30 tablet cephalexin [Keflex] 250 mg PO TID #20 cap 08/12/20 cephalexin [Keflex] 500 mg PO Q12H #14 cap 08/12/20 Allergies Allergy/AdvReac Type Severity Reaction Status Date / Time nicotine Allergy Unknown patch Verified 08/12/20 19:04 No Known Allergies Allergy Unknown unknown Verified 08/12/20 19:04 [NO KNOWN ALLERGIES] Review of Systems Review of Systems: All other systems are reviewed and are negative Constitutional: Reports as per HPI and Reports no additional constitutional complaints Eyes: Reports as per HPI and Reports no additional eye complaints Reports system reviewed and no additional complaints, except as documented Cardiovascular: Reports as per HPI and Reports no additional cardiovascular complaints Respiratory: Reports as per HPI and Reports no additional respiratory complaints Gastrointestinal: Reports as per HPI and Reports no additional gastrointestinal complaints Genitourinary: Reports no additional female genitourinary complaints Musculoskeletal: Reports no additional musculoskeletal complaints Skin/Breast: Reports system reviewed and no additional complaints, except as docu Psychiatric: Reports no additional psychiatric complaints Endocrine: Reports no additional endocrine complaints Hematologic/Lymphatic: Reports no additional hematologic/lymphatic complaints Allergic/Immunologic: Reports no additional allergic/immunologic complaints Reports system reviewed and no additional complaints, except as documented and Reports Abnormal speech present [facility] Past Medical History Medical History Atrial fibrillation COPD (chronic obstructive pulmonary disease) Emphysema of lung Enlarged prostate Sauceda catheter in place Social History Social History Alcohol intake: never Smoking Status: Never smoker Smoked in Last 30 Days: No Use of substances other than those prescribed or required for medical reasons: Unknown Advance Directives: Yes Advance Directives on File: Yes Advance Directives Date on File: 07/24/05 Physical Exam Vital Signs: Vital Signs: Vital Signs Temp Pulse Resp BP Pulse Ox 08/12/20 22:46 98.1 F 81 18 125/71 93 08/12/20 20:40 98.8 F 87 20 128/75 98 08/12/20 18:55 98.1 F 86 19 106/62 100 Body Mass Index 22.4 vital signs have been reviewed as normal and appeared to be correct. Blood pressure normal. Heart rate normal. Respiration rate normal. Temperature normal. Oxygen saturation normal. Appearance: Alert. Oriented X3. No acute distress. Head: Normal external exam. Normocephalic. Atraumatic. No Vargas signs noted. No raccoon eyes noted Eyes: PERRLA. EOMI. Conjunctiva and sclera normal. Eyelids normal. ENT: EAC normal. TM's Normal. Pharynx normal. Uvula midline. Moist mucous membranes. No trismus noted. No drooling noted. No muffled voice noted. Neck: Normal inspection. Neck supple. FROM. No adenopathy. Thyroid Normal. No meningeal signs. No neck mass noted. CVS: Normal heart rate and rhythm. Heart sound normal. No murmurs noted. Pulses normal throughout. Respiratory: No respiratory distress. Painless inspiration. Breath sounds normal. No wheezes/rales/rhonchi noted. Chest nontender. No accessory muscle usage noted or decreased air movement noted. Abdomen: Soft and nontender. Bowel sounds normal in all 4 quadrants. No distention noted. No organomegaly noted. No visible injury noted. Back: No CVA tenderness. Full range of motion noted. Skin: Skin warm and dry. Normal skin color. Normal skin turgor. No rashes/lesions/lacerations noted. Extremities: No lower extremity edema. Extremities exhibit normal range of motion. Extremities nontender. Neuro: Oriented X 3. No motor deficit. No sensory deficit. Reflexes normal. Course Course Course Narrative: urinary tension that is working, felt the patient is very anxious coming to the emergency room multiple times for the same reason, will check UA, will consult case management for possible increase VNA service from 2 times a week maybe once daily. MDM - Male Genitourinary MDM Narrative Medical decision making narrative: assessment and plan. 70-year-old male with Sauceda catheter due to urinary retention and BPH, Sauceda catheter was just changed 2 days ago, patient showing urinary tract infection and UA will start the patient on antibiotic. Lab Data Labs: Lab Results 08/12/20 Range/Units 20:56 Urine Color YELLOW Urine Appearance CLOUDY Urine pH 5.5 (5.0-8.0) Ur Specific [place] >= 1.030 H (1.005-1.025) Urine Protein 2+ H (NEG-TRACE) MG/DL Urine Glucose (UA) NEG (NEG) MG/DL Urine Ketones NEG (NEG) MG/DL Urine Blood 3+ H (NEG) Urine Nitrite POS H (NEG) Ur Leukocyte Esterase 1+ H (NEG) Urine RBC TNTC H (0) /HPF Urine WBC TNTC H (0-4) /HPF Ur Squamous Epith Cells NONE /LPF Urine Bacteria 3+ /LPF Discharge Plan Discharge Clinical Impression: Sauceda catheter in place Urinary tract infection associated with catheterization of urinary tract Qualifiers: Indwelling urinary catheter type: indwelling urethral catheter Encounter type: subsequent encounter Qualified Code(s): T83.511D - Infection and inflammatory reaction due to indwelling urethral catheter, subsequent encounter Patient Disposition: Home, Self-Care Instructions: Urinary Tract Infection in Men (ED) Prescriptions: New cephalexin [Keflex] 500 mg capsule 500 mg PO Q12H Qty: 14 RF: 0 cephalexin [Keflex] 250 mg capsule 250 mg PO TID Qty: 20 RF: 0 No Action VITAMIN B-12 1000MCGTAB See Rx Instructions .ROUTE .COMPLEX Qty: 30 RF: 5 tamsulosin [Flomax] 0.4 mg Capsule 0.4 mg PO DAILY@1700 RF: 0 aspirin 81 mg Tablet 162 mg PO DAILY RF: 0 lisinopril 5 mg Tablet 5 mg PO DAILY RF: 0 furosemide 20 mg Tablet 20 mg PO QAM RF: 0 gabapentin 100 mg Capsule 100 mg PO DAILY RF: 0 finasteride [Proscar] 5 mg Tablet 5 mg PO DAILY RF: 0 Breo Ellipta 100-25 mcg/dose Blister With Device 1 ea inhalation RDAILY Qty: 1 RF: 0 atorvastatin 20 mg Tablet 20 mg PO BEDTIME 30 Days Qty: 30 RF: 0 diltiazem HCl 240 mg Capsule,Extended Release 24 Hr 240 mg PO DAILY RF: 0 Combivent Respimat 20-100 mcg/actuation Mist 1 puff INHALATION QID RF: 0 tramadol 50 mg tablet 1 tab PO TID RF: 0 Referrals: Michael Deutsch MD [Physician] - 2 days Po,Rajinder Lopez MD [Primary Care Provider] - 2 days
[2020-08-12 22:46] VITALS: BP 125/71; PULSE 81; RESP 18; TEMP 36.7; O2SAT 93
== END 2020-08-12 23:55 | disposition home or self-care (01) ==
PROVIDERS: Emergency Provider Emergency Medicine; PCP Internal Medicine
DX: T83.9XXA Unspecified complication of genitourinary prosthetic device, implant and graft, initial encounter (principal); N40.0 Benign prostatic hyperplasia without lower urinary tract symptoms; R33.9 Retention of urine, unspecified; Y73.8 Miscellaneous gastroenterology and urology devices associated with adverse incidents, not elsewhere classified; Y92.9 Unspecified place or not applicable; Z79.899 Other long term (current) drug therapy
CPT/HCPCS: 81001; 87086; 87088; 87186; 99283; 99284

== ENCOUNTER 2020-08-13 21:05 | Emergency (ER) | payer MEDICARE, SELFPAY ==
[2020-08-13 22:01] VITALS: BP 109/70; PULSE 95; RESP 18; TEMP 37.4; O2SAT 99; BMI 22.4
[2020-08-14] VITALS (7 sets, daily range): BP systolic 121–132; BP diastolic 63–84; PULSE 80–86; RESP 15–20; TEMP 37; O2SAT 95–98
--- NOTE | 2020-08-14 01:03 | ED.GENADULT ---
HPI - General Adult General Chief complaint: General Medical <RIZWAN Ellis - Last Filed: 08/14/20 02:11> Stated complaint: MULTIPLE COMPLAINTS <RIZWAN Ellis Last Filed: 08/14/20 02:11> Time Seen by Provider: 08/14/20 00:48 <RIZWAN Ellis Last Filed: 08/14/20 02:11> Source: patient <RIZWAN Ellis - Last Filed: 08/14/20 02:11> Mode of arrival: ambulatory <RIZWAN Ellis Last Filed: 08/14/20 02:11> Limitations: no limitations <RIZWAN Ellis Last Filed: 08/14/20 02:11> History of Present Illness HPI narrative: patient is a 70-year-old male with past medical history of BPH and urinary retention requiring a Johnson catheter. He was just seen and evaluated in this ED yesterday. He was diagnosed with UTI and given Keflex. today, at triage he claims his catheter was leaking but at the bedside he states he does not have access to his supplies and he wants a leg bag. The reason he does not have access to his supplies is because his son and him had an argument and his son does not want him living there anymore. He states he has nowhere to go. <RIZWAN Ellis - Last Filed: 08/14/20 02:11> Related Data Home medications: Home Medications Medication Instructions Recorded Confirmed aspirin 162 mg PO DAILY 07/18/20 08/14/20 finasteride [Proscar] 5 mg PO DAILY 07/18/20 08/14/20 furosemide 20 mg PO QAM 07/18/20 08/14/20 gabapentin 100 mg PO DAILY 07/18/20 08/14/20 lisinopril 5 mg PO DAILY 07/18/20 08/14/20 tamsulosin [Flomax] 0.4 mg PO DAILY@1700 07/18/20 08/14/20 tramadol 1 tab PO TID 08/09/20 08/14/20 Previous Rx's Medication Instructions Recorded atorvastatin 20 mg PO BEDTIME 30 Days #30 tab 07/19/20 cephalexin [Keflex] 250 mg PO TID #20 cap 08/12/20 <RIZWAN Ellis - Last Filed: 08/14/20 02:11> Allergies/adverse reactions: Allergies Allergy/AdvReac Type Severity Reaction Status Date / Time nicotine Allergy Unknown patch Verified 08/12/20 19:04 No Known Allergies Allergy Unknown unknown Verified 08/12/20 19:04 [NO KNOWN ALLERGIES] <RIZWAN Ellis - Last Filed: 08/14/20 02:11> Review of Systems Review of Systems: Yes all other systems are reviewed and are negative <RIZWAN Ellis - Last Filed: 08/14/20 02:11> PMFSH Past Medical History Medical History: Medical History Atrial fibrillation COPD (chronic obstructive pulmonary disease) Emphysema of lung Enlarged prostate Johnson catheter in place <RIZWAN Ellis - Last Filed: 08/14/20 02:11> Social History Social History: Social History Alcohol intake: never Smoking Status: Former smoker Use of substances other than those prescribed or required for medical reasons: No Advance Directives: Yes Advance Directives on File: Yes Advance Directives Date on File: 07/24/05 <RIZWAN Ellis - Last Filed: 08/14/20 02:11> Physical Exam Vital Signs: Vital Signs: Vital Signs Temp Pulse Resp BP Pulse Ox 08/14/20 07:16 84 20 129/78 95 08/14/20 06:00 98.6 F 80 15 132/84 98 08/14/20 04:00 15 08/14/20 01:23 98.6 F 86 15 121/63 98 08/13/20 22:01 99.4 F 95 18 109/70 99 Body Mass Index 22.4 <RIZWAN Ellis - Last Filed: 08/14/20 02:11> Vital Signs: Vital Signs Temp Pulse Resp BP Pulse Ox 08/14/20 07:16 84 20 129/78 95 08/14/20 06:00 98.6 F 80 15 132/84 98 08/14/20 04:00 15 08/14/20 01:23 98.6 F 86 15 121/63 98 08/13/20 22:01 99.4 F 95 18 109/70 99 Body Mass Index 22.4 <Katelynn Paris NP - Last Filed: 08/14/20 08:33> Const: General: cooperative, healthy appearing, no acute distress and well developed <RIZWAN Ellis - Last Filed: 08/14/20 02:11> Nutritional Appearance: thin <RIZWAN Ellis - Last Filed: 08/14/20 02:11> Orientation/consciousness: patient oriented x3 <RIZWAN Ellis - Last Filed: 08/14/20 02:11> HENMT: Head: Yes normal to inspection <RIZWAN Ellis - Last Filed: 08/14/20 02:11> Eyes: General: appearance normal, both eyes and all related structures <RIZWAN Ellis - Last Filed: 08/14/20 02:11> Pupils: Equal, round and reactive pupils present <Emily Navarro PA - Last Filed: 08/14/20 02:11> Neck: Neck: Yes normal visual inspection, Yes full ROM and Yes supple <RIZWAN Ellis - Last Filed: 08/14/20 02:11> Resp: Effort & Inspection: normal respiratory effort and able to speak in complete sentences <Emily Navarro PA - Last Filed: 08/14/20 02:11> : Male General Exam: Yes normal external exam and Yes other (Johnson in place) <Emily Navarro PA - Last Filed: 08/14/20 02:11> Neuro: General: patient oriented x3 <RIZWAN Ellis - Last Filed: 08/14/20 02:11> Cranial nerves: Yes Equal, round and reactive pupils present <RIZWAN Ellis - Last Filed: 08/14/20 02:11> Extrem: General: Yes normal to inspection <RIZWAN Ellis - Last Filed: 08/14/20 02:11> Course Course Course Narrative: 70yo M with BPH and urinary retention and chronic johnson with UTI not taking his medications bc he cannot remember to take it. I spoke with his Cherie [phone] who states she is bed bound and cannot care for her , their son just had a medical issue and he is unable to care for the father as well. They would like him to go to a facility or have somebody come to the house for a few hours every day to make sure he takes his medication and takes care of his Johnson because he cannot. They state he is urinating all over the house, and his Johnson is leaking all over the house because he cannot take care of it properly. VSS, will give one dose keflex 500mg as pt's states he did not take it at all today. 08/14/2020 2:10am: Sign out to Dr Haney <RIZWAN Ellis - Last Filed: 08/14/20 02:11> 0830- see previous provider's history of present illness and physical exam. I rounded on this patient this morning. He currently has a chronic Johnson with chronic UTIs and is on cephalexin. There is concern from family that he may need short-term rehab as he is unable to care for himself at home. This morning the patient does want to go home. However due to concerns from family will involve Case Management. Vital signs reviewed and stable. No additional concerns from nursing. <Katelynn Paris NP - Last Filed: 08/14/20 08:33> Medical Decision Making Lab Data Result diagrams: : 08/14/20 04:01 08/14/20 04:01 <RIZWAN Ellis - Last Filed: 08/14/20 02:11> Labs: Lab Results 08/14/20 08/14/20 08/14/20 Range/Units 04:01 04:01 04:01 WBC 8.0 (4.8-10.8) X10*3/uL RBC 3.87 L (4.60-5.80) X10*6/uL Hgb 10.3 L (14.0-18.0) g/dl Hct 33.2 L (42-52) % MCV 85.8 (80-98) fL MCH 26.6 L (27.0-33.0) pg MCHC 31.0 (31.0-36.0) g/dl RDW 17.9 H (11.0-16.0) % Plt Count 335 D (160-400) X10*3/uL MPV 8.3 L (9.4-12.4) fL Immature Gran % (Auto) 0.3 (0.0-0.4) % Neut % (Auto) 70.7 (45-73) % Lymph % (Auto) 15.7 L (20-40) % [place] % (Auto) 9.8 (2-11) % Eos % (Auto) 3.1 (0-4) % Baso % (Auto) 0.4 (0-2) % Lymph # (Auto) 1.3 (1.2-4.9) X10*3/uL [place] # (Auto) 0.8 (0.1-1.2) X10*3/uL Eos # (Auto) 0.3 (0.0-0.4) X10*3/uL Baso # (Auto) 0.0 (0.0-0.2) X10*3/uL Abs Immat Gran (auto) 0.02 (0.00-0.03) X10*3/uL Absolute Neuts (auto) 5.6 (2.0-8.3) X10*3/uL Absolute Nucleated RBC 0.000 (0.0-0.012) X10*3/uL Nucleated RBC % (auto) 0.0 (0.0-0.2) /100WBC Hold Blue Top SEE NOTE Sodium 137 (135-145) mmol/L Potassium 3.6 (3.3-5.1) mmol/l Chloride 100 (96-108) mmol/L Carbon Dioxide 29 (22-29) mmol/L Anion Gap 12 (12-20) BUN 25 H (9-16) mg/dL Creatinine 0.80 (0.5-1.4) mg/dL Estim Creat Clear Calc 95.0 Estimated GFR > 60 Random Glucose 108 (60-115) mg/dL Calcium 8.5 (8.4-10.2) mg/dL <RIZWAN Ellis - Last Filed: 08/14/20 02:11> Lab Results 08/14/20 08/14/20 08/14/20 Range/Units 04:01 04:01 04:01 WBC 8.0 (4.8-10.8) X10*3/uL RBC 3.87 L (4.60-5.80) X10*6/uL Hgb 10.3 L (14.0-18.0) g/dl Hct 33.2 L (42-52) % MCV 85.8 (80-98) fL MCH 26.6 L (27.0-33.0) pg MCHC 31.0 (31.0-36.0) g/dl RDW 17.9 H (11.0-16.0) % Plt Count 335 D (160-400) X10*3/uL MPV 8.3 L (9.4-12.4) fL Immature Gran % (Auto) 0.3 (0.0-0.4) % Neut % (Auto) 70.7 (45-73) % Lymph % (Auto) 15.7 L (20-40) % [place] % (Auto) 9.8 (2-11) % Eos % (Auto) 3.1 (0-4) % Baso % (Auto) 0.4 (0-2) % Lymph # (Auto) 1.3 (1.2-4.9) X10*3/uL [place] # (Auto) 0.8 (0.1-1.2) X10*3/uL Eos # (Auto) 0.3 (0.0-0.4) X10*3/uL Baso # (Auto) 0.0 (0.0-0.2) X10*3/uL Abs Immat Gran (auto) 0.02 (0.00-0.03) X10*3/uL Absolute Neuts (auto) 5.6 (2.0-8.3) X10*3/uL Absolute Nucleated RBC 0.000 (0.0-0.012) X10*3/uL Nucleated RBC % (auto) 0.0 (0.0-0.2) /100WBC Hold Blue Top SEE NOTE Sodium 137 (135-145) mmol/L Potassium 3.6 (3.3-5.1) mmol/l Chloride 100 (96-108) mmol/L Carbon Dioxide 29 (22-29) mmol/L Anion Gap 12 (12-20) BUN 25 H (9-16) mg/dL Creatinine 0.80 (0.5-1.4) mg/dL Estim Creat Clear Calc 95.0 Estimated GFR > 60 Random Glucose 108 (60-115) mg/dL Calcium 8.5 (8.4-10.2) mg/dL <Katelynn Paris NP - Last Filed: 08/14/20 08:33> Discharge Plan Discharge Clinical Impression: UTI (urinary tract infection) <RIZWAN Ellis - Last Filed: 08/14/20 02:11> Prescriptions: No Action tamsulosin [Flomax] 0.4 mg Capsule 0.4 mg PO DAILY@1700 RF: 0 aspirin 81 mg Tablet 162 mg PO DAILY RF: 0 lisinopril 5 mg Tablet 5 mg PO DAILY RF: 0 furosemide 20 mg Tablet 20 mg PO QAM RF: 0 gabapentin 100 mg Capsule 100 mg PO DAILY RF: 0 finasteride [Proscar] 5 mg Tablet 5 mg PO DAILY RF: 0 atorvastatin 20 mg Tablet 20 mg PO BEDTIME 30 Days Qty: 30 RF: 0 cephalexin [Keflex] 250 mg capsule 250 mg PO TID Qty: 20 RF: 0 tramadol 50 mg tablet 1 tab PO TID RF: 0 <RIZWAN Ellis - Last Filed: 08/14/20 02:11>
--- NOTE | 2020-08-14 01:06 | PC.NURSE ---
PATIENT'S CALLED AND STATED THAT PATIENT DOESN'T TAKE THE ANTIBIOTICS HE WAS PRESCRIBED BECAUSE HE DOESN'T REMEMBER TO TAKE THEM. SHE ALSO STATED THAT HIS BROTHER OF A URINARY TRACT INFECTION. SHE STATES THAT SHE IS UNABLE TO CARE FOR HIM SHE IS BEDBOUND AND HAS HER OWN HEALTH ISSUES AND THEIR CHILDREN ALSO HAVE KARINE AND DRUG ADDICTION ISSUES. PATIENT HAS HAD AN ONGOING ISSUE WITH URINARY TRACT INFECTION WHICH NEVER CLEARS BECAUSE PATIENT DOES NOT TAKE ANTIBIOTICS. PROVIDER MADE AWARE OF ISSUES. PATIENT SHOULD BE REFERRED TO CASE MANAGEMENT AND THIS IS NOT PATIENT'S BASELINE.
[2020-08-14] MEDS: cephALEXin 500 MG CAPSULE PO (01:21)
[2020-08-14 04:06] LABS: MANUAL DIFF FLAG NO
[2020-08-14 04:07] LABS: Basophils Percent Auto 0.4 % (0-2); Eosinophils Absolute Auto 0.3 X10*3/uL (0.0-0.4); Eosinophils Percent Auto 3.1 % (0-4); Hematocrit 33.2 % (42-52); Hemoglobin 10.3 g/dl (14.0-18.0); Imm Gran Abs Auto 0.02 X10*3/uL (0.00-0.03); Imm Gran Pct Auto 0.3 % (0.0-0.4); Lymphocytes Absolute Auto 1.3 X10*3/uL (1.2-4.9); Lymphocytes Percent Auto 15.7 % (20-40); Mean Corpuscular Hemoglobin 26.6 pg (27.0-33.0); Mean Corpuscular Volume 85.8 fL (80-98); Mean Platelet Volume 8.3 fL (9.4-12.4); Monocytes Absolute Auto 0.8 X10*3/uL (0.1-1.2); Monocytes Percent Auto 9.8 % (2-11); Neutrophils Absolute Auto 5.6 X10*3/uL (2.0-8.3); Neutrophils Percent Auto 70.7 % (45-73); Platelet Count 335 X10*3/uL (160-400); Red Blood Count 3.87 X10*6/uL (4.60-5.80); Red Cell Distribution Width 17.9 % (11.0-16.0)
[2020-08-14 04:28] LABS: Anion Gap 12 (12-20); Blood Urea Nitrogen 25 mg/dL (9-16); Carbon Dioxide 29 mmol/L (22-29); Chloride 100 mmol/L (96-108); Estimated Glomerular Filt Rate > 60; Glucose Random 108 mg/dL (60-115); Potassium 3.6 mmol/l (3.3-5.1); Sodium 137 mmol/L (135-145)
[2020-08-14 04:29] LABS: Calcium 8.5 mg/dL (8.4-10.2)
--- NOTE | 2020-08-14 06:11 | PC.NURSE ---
phone call from patient's son, Esequiel. He is concerned that his father's health has deteriorated and he has trouble remembering things. Per patient's son, the patient's father, mother, and brother all had dementia. His opinion is that he needs a short term placement in a long term for rehab. patient is suppose to be case management this morning. The family wishes for short term placement in a rehab. Family can be reached at [phone]( esequiel), (andra, daughter.)
[2020-08-14] MEDS: Gabapentin 100 MG CAPSULE PO (08:48)
[2020-08-14] MEDS: Furosemide 20 MG TABLET PO (08:48)
[2020-08-14] MEDS: cephALEXin 250 MG CAPSULE PO (08:48)
[2020-08-14] MEDS: lisinopriL 5 MG TABLET PO (08:48)
[2020-08-14] MEDS: Aspirin 81 MG TAB.CHEW 162 MG PO (09:19)
--- NOTE | 2020-08-14 10:06 | MHC.CM.PN ---
Son, Mxa ([phone]) concerned about dementia in family and pt. behaviors. Feels pt. needs STR placement. Ex-, Cherie, states pt doesn't take antibiotics. Physical therapy eval ordered. [facility] is active with [facility]. Med list obtained. Will continue to follow for D/C needs.
--- NOTE | 2020-08-14 10:28 | MHC.CM.ED ---
Physican therapy assessment completed, pt. is independent per Francie PT. Call to discusses D/C plan with son, Max ([phone]) message left. Daughter, Nikkie([phone]), unable to reach or leave message. Will continue to follow for D/C needs.
--- NOTE | 2020-08-14 10:55 | MHC.CM.ED ---
Spoke with son, Max ([phone]-corrected number) about physical therapy assessment and D/C plan. Max understands that his father is not candidate for STR, probably for LTR. Son willing to take father home. Has [facility] services. Requests additional help in the home. Referred son to PCP for help with this. Also notified [facility] of son's concerns. Awaiting INR results prior to D/C home. Will call Kemi(ex-) at [phone] to moss picker patient when discharged home.
[2020-08-14 11:03] LABS: INTERNATIONAL NORM RATIO 1.5 (0.9-1.1); Prothrombin Time 17.8 SEC (10.8-13.0)
[2020-08-14] MEDS: Finasteride 5 MG TABLET PO (11:25)
--- NOTE | 2020-08-14 11:33 | MHC.CM.PN ---
Met with patient. Very pleasant and cooperative. Expresses desire to go home. Feels he needs more help at home with medication management and some therapy for his anger and depression. Aware that son, Max, is aware of D/C plan and willing to have him come home. Max expressed need for more home services. EMILIA aware. Corey PADILLA and aware of D/C plan. Will follow for d/c needs.
--- NOTE | 2020-08-14 11:50 | ED_ITS ---
HPI - General Adult General Chief complaint: General Medical Stated complaint: MULTIPLE COMPLAINTS Time Seen by Provider: 08/14/20 00:48 Related Data Home Medications Medication Instructions Recorded Confirmed aspirin 162 mg PO DAILY 07/18/20 08/14/20 finasteride [Proscar] 5 mg PO DAILY 07/18/20 08/14/20 furosemide 20 mg PO QAM 07/18/20 08/14/20 gabapentin 100 mg PO DAILY 07/18/20 08/14/20 lisinopril 5 mg PO DAILY 07/18/20 08/14/20 tamsulosin [Flomax] 0.4 mg PO DAILY@1700 07/18/20 08/14/20 tramadol 1 tab PO TID 08/09/20 08/14/20 Previous Rx's Medication Instructions Recorded atorvastatin 20 mg PO BEDTIME 30 Days #30 tab 07/19/20 cephalexin [Keflex] 250 mg PO TID #20 cap 08/12/20 Allergies Allergy/AdvReac Type Severity Reaction Status Date / Time nicotine Allergy Unknown patch Verified 08/14/20 09:30 [facility] Past Medical History Medical History (Updated 08/14/20 @ 11:52 by Susie Haji MD) Atrial fibrillation COPD (chronic obstructive pulmonary disease) Emphysema of lung Enlarged prostate Sauceda catheter in place Surgical History History of AAA (abdominal aortic aneurysm) repair History of cataract surgery History of neck surgery History of tonsillectomy Family History Family History (Updated 08/14/20 @ 09:32 by ESTHER Locke) Father Lung cancer Mother No problems noted. Family/Other Brain cancer Stroke CVD (cerebrovascular disease) Social History Social History Alcohol intake: never Smoking Status: Former smoker Use of substances other than those prescribed or required for medical reasons: No Advance Directives: Yes Advance Directives on File: Yes Advance Directives Date on File: 07/24/05 Physical Exam Vital Signs: Vital Signs: Vital Signs Temp Pulse Resp BP Pulse Ox 08/14/20 11:27 84 20 132/72 08/14/20 10:24 84 129/78 08/14/20 08:48 84 129/78 08/14/20 07:16 84 20 129/78 95 10/27/20 06:00 98.6 F 80 15 132/84 98 08/14/20 04:00 15 08/14/20 01:23 98.6 F 86 15 121/63 98 08/13/20 22:01 99.4 F 95 18 109/70 99 Body Mass Index 22.4 Course Course Course Narrative: I received sign-out from Dr. Haney. Patient came here because he had an argument with his family, initially the fam venita tried for placement, however patient is doing well from a physical therapy considers that the patient can do well at home. He will be discharged home with recommendations further issue no home services like home health aide. UTI was treated, patient was seen yesterday for UTI and given Keflex, patient states he has still antibiotics at home. Patient was also seen here for urinary retention. Case management evaluated the patient and spoke to the family, the patient's son is willing to take the patient back home. Medical Decision Making Lab Data Result diagrams: 08/14/20 04:01 08/14/20 04:01 Labs: Lab Results 08/14/20 08/14/20 08/14/20 Range/Units 04:01 04:01 04:01 WBC 8.0 (4.8-10.8) X10*3/uL RBC 3.87 L (4.60-5.80) X10*6/uL Hgb 10.3 L (14.0-18.0) g/dl Hct 33.2 L (42-52) % MCV 85.8 (80-98) fL MCH 26.6 L (27.0-33.0) pg MCHC 31.0 (31.0-36.0) g/dl RDW 17.9 H (11.0-16.0) % Plt Count 335 D (160-400) X10*3/uL MPV 8.3 L (9.4-12.4) fL Immature Gran % (Auto) 0.3 (0.0-0.4) % Neut % (Auto) 70.7 (45-73) % Lymph % (Auto) 15.7 L (20-40) % Davidson % (Auto) 9.8 (2-11) % Eos % (Auto) 3.1 (0-4) % Baso % (Auto) 0.4 (0-2) % Lymph # (Auto) 1.3 (1.2-4.9) X10*3/uL Davidson # (Auto) 0.8 (0.1-1.2) X10*3/uL Eos # (Auto) 0.3 (0.0-0.4) X10*3/uL Baso # (Auto) 0.0 (0.0-0.2) X10*3/uL Abs Immat Gran (auto) 0.02 (0.00-0.03) X10*3/uL Absolute Neuts (auto) 5.6 (2.0-8.3) X10*3/uL Absolute Nucleated RBC 0.000 (0.0-0.012) X10*3/uL Nucleated RBC % (auto) 0.0 (0.0-0.2) /100WBC PT (10.8-13.0) SEC INR (0.9-1.1) Hold Blue Top SEE NOTE Sodium 137 (135-145) mmol/L Potassium 3.6 (3.3-5.1) mmol/l Chloride 100 (96-108) mmol/L Carbon Dioxide 29 (22-29) mmol/L Anion Gap 12 (12-20) BUN 25 H (9-16) mg/dL Creatinine 0.80 (0.5-1.4) mg/dL Estim Creat Clear Calc 95.0 Estimated GFR > 60 Random Glucose 108 (60-115) mg/dL Calcium 8.5 (8.4-10.2) mg/dL 08/14/20 Range/Units 10:45 WBC (4.8-10.8) X10*3/uL RBC (4.60-5.80) X10*6/uL Hgb (14.0-18.0) g/dl Hct (42-52) % MCV (80-98) fL MCH (27.0-33.0) pg MCHC (31.0-36.0) g/dl RDW (11.0-16.0) % Plt Count (160-400) X10*3/uL MPV (9.4-12.4) fL Immature Gran % (Auto) (0.0-0.4) % Neut % (Auto) (45-73) % Lymph % (Auto) (20-40) % Davidson % (Auto) (2-11) % Eos % (Auto) (0-4) % Baso % (Auto) (0-2) % Lymph # (Auto) (1.2-4.9) X10*3/uL Davidson # (Auto) (0.1-1.2) X10*3/uL Eos # (Auto) (0.0-0.4) X10*3/uL Baso # (Auto) (0.0-0.2) X10*3/uL Abs Immat Gran (auto) (0.00-0.03) X10*3/uL Absolute Neuts (auto) (2.0-8.3) X10*3/uL Absolute Nucleated RBC (0.0-0.012) X10*3/uL Nucleated RBC % (auto) (0.0-0.2) /100WBC PT 17.8 H (10.8-13.0) SEC INR 1.5 H (0.9-1.1) Hold Blue Top SEE NOTE Sodium (135-145) mmol/L Potassium (3.3-5.1) mmol/l Chloride (96-108) mmol/L Carbon Dioxide (22-29) mmol/L Anion Gap (12-20) BUN (9-16) mg/dL Creatinine (0.5-1.4) mg/dL Estim Creat Clear Calc Estimated GFR Random Glucose (60-115) mg/dL Calcium (8.4-10.2) mg/dL Discharge Plan Discharge Clinical Impression: Acute urinary retention UTI (urinary tract infection) Qualifiers: Urinary tract infection type: site unspecified Hematuria presence: without hematuria Qualified Code(s): N39.0 - Urinary tract infection, site not specified Patient Disposition: Home, Self-Care Instructions: Urinary Tract Infection in Men (ED), Urinary Retention in Men (ED), Enlarged Prostate (BPH) (ED) Prescriptions: No Action tamsulosin [Flomax] 0.4 mg Capsule 0.4 mg PO DAILY@1700 RF: 0 aspirin 81 mg Tablet 162 mg PO DAILY RF: 0 lisinopril 5 mg Tablet 5 mg PO DAILY RF: 0 furosemide 20 mg Tablet 20 mg PO QAM RF: 0 gabapentin 100 mg Capsule 100 mg PO DAILY RF: 0 finasteride [Proscar] 5 mg Tablet 5 mg PO DAILY RF: 0 atorvastatin 20 mg Tablet 20 mg PO BEDTIME 30 Days Qty: 30 RF: 0 cephalexin [Keflex] 250 mg capsule 250 mg PO TID Qty: 20 RF: 0 tramadol 50 mg tablet 1 tab PO TID RF: 0
--- NOTE | 2020-08-14 12:12 | MHC.CM.ED ---
Spoke with Ex- Cherie regarding transportation home for pt. Daughter, Nikkie, will pick and shovel man pt. Reminded them to bring his oxygen, as he is O2 dependent. Ex- and daughter expressed concerns about needing more help at home. Explained that [facility] is aware and will help Max to arrange for additional services through [facility] or [facility]. Aware that pt does not need STR and may need LTC, but family unwilling to consider this at this time. DaughterNikkie([phone] new number) will pick and shovel man pt. at 1pm
== END 2020-08-14 13:23 | disposition home or self-care (01) ==
PROVIDERS: Emergency Medicine; Emergency Provider Emergency Medicine Emergency Medical Services; PCP Internal Medicine
DX: N39.0 Urinary tract infection, site not specified (principal); R33.9 Retention of urine, unspecified; Z87.891 Personal history of nicotine dependence; Z79.899 Other long term (current) drug therapy
CPT/HCPCS: 36415; 80048; 85025; 85610; 97161; 99284; 99285

== ENCOUNTER 2020-09-20 09:23 | Outpatient (REF) | payer MEDICARE, MEDICAID, SELFPAY | END 2020-09-20 09:24 | disposition home or self-care (01) | LOC: CF 09:23 | PROVIDERS: PCP Internal Medicine; Visit Provider Urology | DX: Z13.89 Encounter for screening for other disorder (principal) ==

== ENCOUNTER 2021-03-25 07:08 | Outpatient (REF) | payer MEDICARE, MEDICAID, SELFPAY ==
[2021-03-25 07:42] LABS: Hematocrit 33.3 % (42-52); Hemoglobin 10.3 g/dl (14.0-18.0); Mean Corpuscular HGB Conc 30.9 g/dl (31.0-36.0); Mean Corpuscular Hemoglobin 28.9 pg (27.0-33.0); Mean Corpuscular Volume 93.3 fL (80-98); Mean Platelet Volume 9.1 fL (9.4-12.4); Platelet Count 336 X10*3/uL (160-400); Red Blood Count 3.57 X10*6/uL (4.60-5.80); White Blood Count 8.2 X10*3/uL (4.8-10.8)
[2021-03-25 08:15] LABS: Alanine Aminotransferase 73 U/L (0-40); Albumin Level 3.3 g/dL (3.5-5.0); Alkaline Phosphatase 85 U/L (39-117); Anion Gap 11 (12-20); Aspartate Amino Transferase 29 U/L (5-37); Bilirubin Total 0.4 mg/dL (0.0-1.0); Blood Urea Nitrogen 11 mg/dL (9-16); Calcium 8.6 mg/dL (8.4-10.2); Carbon Dioxide 26 mmol/L (22-29); Chloride 107 mmol/L (96-108); Estimated Glomerular Filt Rate > 60; Glucose Random 103 mg/dL (60-115); Potassium 3.7 mmol/L (3.3-5.1); Sodium 140 mmol/L (135-145); Total Protein 5.8 g/dL (6.5-8.0)
== END 2021-03-25 07:09 | disposition home or self-care (01) ==
LOC: HO.MMNH1L 07:08
PROVIDERS: Visit Provider Family Medicine
DX: N39.0 Urinary tract infection, site not specified (principal); I48.91 Unspecified atrial fibrillation
CPT/HCPCS: 36415; 80053; 85027

== ENCOUNTER 2021-03-27 10:23 | Outpatient (REF) | payer MEDICARE, MEDICAID, SELFPAY ==
[2021-03-27 10:32] LABS: Hematocrit 39.4 % (42-52); Mean Corpuscular HGB Conc 30.5 g/dl (31.0-36.0); Mean Corpuscular Hemoglobin 28.8 pg (27.0-33.0); Mean Corpuscular Volume 94.7 fL (80-98); Mean Platelet Volume 9.1 fL (9.4-12.4); Platelet Count 402 X10*3/uL (160-400); Red Blood Count 4.16 X10*6/uL (4.60-5.80); Red Cell Distribution Width 16.7 % (11.0-16.0); White Blood Count 11.2 X10*3/uL (4.8-10.8)
== END 2021-03-27 10:24 | disposition home or self-care (01) ==
LOC: HO.MMNH1L 10:23
PROVIDERS: Visit Provider Family Medicine
DX: R19.7 Diarrhea, unspecified (principal); R19.5 Other fecal abnormalities
CPT/HCPCS: 36415; 85027

== ENCOUNTER 2021-04-01 00:29 | Outpatient (REF) | payer MEDICARE, MEDICAID, SELFPAY ==
[2021-04-01 07:09] LABS: Mean Corpuscular HGB Conc 31.3 g/dl (31.0-36.0); Mean Corpuscular Hemoglobin 29.5 pg (27.0-33.0); Mean Corpuscular Volume 94.4 fL (80-98); Platelet Count 349 X10*3/uL (160-400); Red Blood Count 3.39 X10*6/uL (4.60-5.80); Red Cell Distribution Width 16.6 % (11.0-16.0); White Blood Count 6.3 X10*3/uL (4.8-10.8)
[2021-04-01 07:15] LABS: Anion Gap 11 (12-20); Blood Urea Nitrogen 12 mg/dL (9-16); Calcium 8.4 mg/dL (8.4-10.2); Carbon Dioxide 27 mmol/L (22-29); Chloride 108 mmol/L (96-108); Estimated Glomerular Filt Rate > 60; Glucose Random 75 mg/dL (60-115); Sodium 142 mmol/L (135-145)
== END 2021-04-01 00:30 | disposition home or self-care (01) ==
LOC: HO.MMNH1L 00:29
PROVIDERS: Visit Provider Family Medicine
DX: N39.0 Urinary tract infection, site not specified (principal); I48.91 Unspecified atrial fibrillation
CPT/HCPCS: 36415; 80048; 85027

== ENCOUNTER 2021-04-08 07:05 | Outpatient (REF) | payer MEDICARE, MEDICAID, SELFPAY ==
[2021-04-08 07:15] LABS: Hematocrit 39.3 % (42-52); Hemoglobin 12.1 g/dl (14.0-18.0); Mean Corpuscular HGB Conc 30.8 g/dl (31.0-36.0); Mean Corpuscular Hemoglobin 29.7 pg (27.0-33.0); Mean Corpuscular Volume 96.6 fL (80-98); Platelet Count 319 X10*3/uL (160-400); Red Blood Count 4.07 X10*6/uL (4.60-5.80); Red Cell Distribution Width 17.6 % (11.0-16.0); White Blood Count 4.6 X10*3/uL (4.8-10.8)
[2021-04-08 07:32] LABS: Anion Gap 11 (12-20); Blood Urea Nitrogen 12 mg/dL (9-16); Carbon Dioxide 27 mmol/L (22-29); Chloride 110 mmol/L (96-108); Estimated Glomerular Filt Rate > 60; Glucose Random 74 mg/dL (60-115); Potassium 4.4 mmol/L (3.3-5.1); Sodium 144 mmol/L (135-145)
== END 2021-04-08 07:06 | disposition home or self-care (01) ==
LOC: HO.MMNH1L 07:05
PROVIDERS: Visit Provider Family Medicine
DX: N39.0 Urinary tract infection, site not specified (principal); I48.91 Unspecified atrial fibrillation
CPT/HCPCS: 36415; 80048; 85027

== ENCOUNTER 2021-04-15 00:31 | Outpatient (REF) | payer MEDICARE, MEDICAID, SELFPAY | END 2021-04-15 00:32 | disposition home or self-care (01) | LOC: HO.MMNH1L 00:31 | PROVIDERS: Visit Provider Family Medicine | DX: Z13.89 Encounter for screening for other disorder (principal) ==

== ENCOUNTER 2021-04-22 00:12 | Outpatient (REF) | payer MEDICARE, MEDICAID, SELFPAY | END 2021-04-22 00:13 | disposition home or self-care (01) | LOC: HO.MMNH1L 00:12 | PROVIDERS: Visit Provider Family Medicine | DX: Z13.89 Encounter for screening for other disorder (principal) ==

== ENCOUNTER 2023-11-05 15:54 | Outpatient (AMB) | payer MEDICARE, SELFPAY ==
[2023-11-05 16:14] VITALS: BP 130/86; PULSE 67; O2SAT 97; BMI 21.6
--- NOTE | 2023-11-05 16:14 | MHC.PC.OV ---
Vital Signs 11/05/23 16:14 Height 5 ft 11 in Weight 154 lb 8.705 oz BMI 21.6 BP 130/86 Blood Pressure Location Lt brachial Position Sitting Pulse 67 Pulse Source Pulse Oximeter Pulse Oximetry (%) 97 Oxygen Delivery Method Room Air Intake Visit Reasons: Physical exam Intake Note: Patient is here today for a physical. 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 Required: No Allergies No Known Allergies Allergy (Verified 11/05/23 16:14) Medication List - Last Reconciled 11/05/23 by Rajinder Jean MD apixaban (Eliquis) 5 mg PO BID aspirin 162 mg PO DAILY atorvastatin 20 mg PO BEDTIME 90 days catheter (Sauceda Catheter) As directed [CHOCOLATE ENSURE As directed] cyanocobalamin (vitamin B-12) (Vitamin B-12) 1,000 mcg PO DAILY 30 days diltiazem HCl ER 180 mg PO DAILY fluticasone furoate-vilanterol 100-25 mcg/dose 1 ea PO DAILY [Sauceda catheter As directed] gabapentin 100 mg PO DAILY ipratropium-albuterol 20-100 mcg/actuation (Combivent Respimat) 1 puff inhalation Q4H mirtazapine (Remeron) 15 mg PO BEDTIME olanzapine 2.5 mg PO DAILY 30 days tamsulosin 0.4 mg PO DAILY 90 days Tobacco use date assessed: 11/05/23 Fall risk assessment: No Falls in past year Last assessed Fall Risk: 11/05/23 Dental Screening Dental Screen Date: 11/05/23 HPI Physical exam HPI Details 73-year-old male with multiple medical problems has not been seen since May 2022 has hypertension hypercholesterolemia, dementia COPD atrial fibrillation generalized anxiety disorder BPH and recurrent urinary tract infection. Patient is here for physical exam. ER visit September 2023 has chronic indwelling Sauceda catheter flank pains diagnosis of urinary tract infection placed on cephalexin. Patient has was advised to follow-up with urology. June 2023 ER visit also Sauceda catheter problem leaking. decline vaccine PFSH Medical History (Updated 11/05/23 @ 16:49 by Rajinder Jean MD) Dyslipidemia B12 deficiency Paroxysmal atrial fibrillation Degenerative disc disease, lumbar Degenerative disc disease, cervical Peripheral vascular disease AAA (abdominal aortic aneurysm) Hypertension High cholesterol Enlarged prostate Sauceda catheter in place Emphysema of lung COPD (chronic obstructive pulmonary disease) UTI (urinary tract infection) Surgical History History of AAA (abdominal aortic aneurysm) repair History of cataract surgery History of tonsillectomy History of neck surgery Family History Father Lung cancer Mother No problems noted. Family/Other Brain cancer Stroke CVD (cerebrovascular disease) Social History (Updated 11/05/23 @ 17:00 by Rajinder Jean MD) Housing: Apartment Alcohol intake: current Alcohol intake frequency: does not drink Patient Tobacco Use Status: Former Tobacco user Years Smoked: stopped 2015 Second Hand Smoke Exposure: Yes Advance Directives Date on File: 07/24/05 service: No Current occupational status: retired Cognitive needs: No Hearing needs: No Vision needs: Yes Questionnaire PHQ-9 Over the last 2 weeks, how often have you been bothered by any of the following problems? 1. Little interest or pleasure in doing things: several days 2. Feeling down, depressed, or hopeless: several days 3. Trouble falling or staying asleep, or sleeping too much: nearly every day 4. Feeling tired or having little energy: several days 5. Poor appetite or overeating: not at all 6. Feeling bad about yourself - or that you are a failure or have let yourself or your family down: not at all 7. Trouble concentrating on things, such as reading the newspaper or watching television: not at all 8. Moving or speaking so slowly that other people could have noticed. Or the opposite - being so fidgety or restless that you have been moving around a lot more than usual: not at all 9. Thoughts that you would be better off or of hurting yourself in some way: not at all Total score: 6 Depression Screening Interpretation: Positive Depression Screening Done: Yes Source: Developed by Drs. Patrick Garcia, Brinda Villalba, Joe Frankel and colleagues, with an educational brenda from [employer]. Thrive Questionnaire Date Thrive assessed: 11/05/23 I am a: Parent/Caregiver What is your living situation today?: I have a steady place to live Within the past 12 months, did the food you bought not last and you didn't have the money to get more?: Never true Within the past 12 months, did you worry whether your food would run out before you got money to buy more?: Never true Do you have trouble paying for medicines?: No Do you have trouble getting transportation to medical appointments?: No Do you have trouble paying your heating and electricity bill?: No Do you have trouble taking care of your child, family member or friend?: No Do you have trouble with day-to-day activities such as bathing, preparing meals, shopping, managing finances, etc.?: No Are you currently unemployed and looking for a job?: No Are you interested in more education?: No Please select the resources that you would like help with: None AUDIT C Alcohol Use Questionnaire (AUDIT-C) 1. How often do you have a drink containing alcohol?: Never 3. How often do you have six or more drinks on one occasion?: Never Total Score: 0 KOTA-7 AMB Questionnaire KOTA-7 Date KOTA - 7 assessed: 11/05/23 Feeling nervous, anxious, or on edge: 1 = Several days Not being able to stop or control worryin = Several days Worrying too much about different things: 1 = Several days Trouble relaxin = Several days Being so restless that it is hard to sit still: 0 = Not at all Becoming easily annoyed or irritable: 0 = Not at all Feeling afraid as if something awful might happen: 0 = Not at all Total KOTA-7 score (0-4 normal; 5-9 mild; 10-14 moderate; 15-21 severe): 4 Source: Developed by Drs. Patrick Garcia, Brinda Villalba, Joe Frankel and colleagues, with an educational brenda from [employer]. Review of Systems Const Denies poor appetite and Denies weakness Eyes Denies no additional complaints ENT Reports Normal hearing present, Denies dizziness, Denies nasal congestion, Denies tinnitus and Denies sore throat Card Denies chest pain, Denies syncope, Denies rapid heart rate and Denies dyspnea Resp Denies cough and Denies dyspnea GI Denies change in stool character, Reports constipation, Denies diarrhea, Denies nausea and Denies vomiting Denies dysuria and Denies urinary frequency Neuro Reports Normal hearing present, Denies confusion, Denies dizziness, Denies syncope and Denies weakness Psych Denies confusion Physical exam (Primary Care) Vital Signs: Last Vital Signs Pulse 67 11/05/23 16:14 BP 130/86 11/05/23 16:14 Pulse Ox 97 11/05/23 16:14 Oxygen Delivery Method Room Air 11/05/23 16:14 BMI result Body Mass Index 21.6 Tobacco/Smoking Status: Tobacco use Status Tobacco use date assessed 11/05/23 11/05/23 16:15 Patient Tobacco Use Status Former Tobacco user 11/05/23 16:15 PHQ-9: PHQ-9 Score PHQ-9: Total score 6 11/05/23 16:37 Depression Screening Interpretation: Positive Thrive Assessment: Date of Thrive Assessment Date Thrive assessed 11/05/23 11/05/23 16:15 Const General: No confusion Orientation/consciousness: No confusion HENMT Head: Yes normocephalic Ears: external ears normal and TM's normal bilaterally Face and sinus: Yes normal facial exam Mouth: moist mucous membranes Throat: Yes tonsils normal Eyes Conjunctivae: conjunctivae normal Pupils: Equal, round and reactive pupils present and Pupil accommodation reflex normal Direct Ophthalmoscopy: normal light reflex Neck Neck: No lymphadenopathy Thyroid: Thyroid normal Chest Chest palpation & inspection: normal inspection of the chest Resp Effort & Inspection: audible wheezes Auscultation: no crackles, wheezes and diminished lung sounds Cardio Rate: regular rate Rhythm: regular rhythm Peripheral pulses: radial pulses present and dorsalis pedis present GI Palpation (GI): no masses Auscultation: normal bowel sounds and normoactive bowel sounds Rectal Exam - Male: Yes deferred Other: Urinary catheter attached Skin General skin exam: no rashes or lesions noted Rashes: no rashes Neuro General: No confusion Cranial nerves: Yes Equal, round and reactive pupils present and Yes Normal hearing present Cognition (Neuro): normal cognition Gait exam (Neuro): Normal gait present Motor exam (neuro): 5/5 motor strength present throughout Deep tendon reflexes (DTR's): Right brachioradialis reflex intensity grade: 2+, Left brachioradialis reflex intensity grade: 2+, Right patellar reflex intensity grade: 2+ and Left patellar reflex intensity grade: 2+ Extrem General: No edema Assessment and Plan Assessment & Plan (1) Annual physical exam: Code(s): Z00.00 - Encounter for general adult medical examination without abnormal findings (2) Chronic indwelling Sauceda catheter: Code(s): Z97.8 - Presence of other specified devices Plan: urgent referral to urology (3) Recurrent UTI: Code(s): N39.0 - Urinary tract infection, site not specified Plan: urgent referral to urology (4) Dementia: Code(s): F03.90 - Unspecified dementia, unspecified severity, without behavioral disturbance, psychotic disturbance, mood disturbance, and anxiety Plan: supportive treatment (5) BPH loc w urin obs/LUTS: Code(s): N40.1 - Benign prostatic hyperplasia with lower urinary tract symptoms Plan: Placed on tamsulosin (6) Hypertension: Comment: Echo 60-65% March EF 55-60% impaired relaxation mild Code(s): I10 - Essential (primary) hypertension Qualifiers: Hypertension type: essential hypertension Qualified Code(s): I10 - Essential (primary) hypertension Plan: Continue with blood pressure medication. Decrease salt intake and exercise on diltiazem 180 mg once a day (7) COPD (chronic obstructive pulmonary disease): Code(s): J44.9 - Chronic obstructive pulmonary disease, unspecified Qualifiers: COPD type: emphysema Emphysema type: unspecified Qualified Code(s): J43.9 - Emphysema, unspecified Plan: Continue with the inhaler (8) Paroxysmal atrial fibrillation: Code(s): I48.0 - Paroxysmal atrial fibrillation Plan: Continue with anticoagulation will need renal function testing (9) High cholesterol: Code(s): E78.00 - Pure hypercholesterolemia, unspecified Plan: Avoid fried foods, chicken skin, eggs, butter margarine, pastries and meat. Be it pork or beef they have a lot of cholesterol on atorvastatin 20 mg once a day Orders: Orders Complete Blood Count Auto Diff Today N39.0 - Urinary tract infection, site not specified Comprehensive Met. Panel Today N39.0 - Urinary tract infection, site not specified Free T4 (Free Thyroxine) Today N39.0 - Urinary tract infection, site not specified Thyroid Stimulating Hormone Today N39.0 - Urinary tract infection, site not specified Vitamin B12 and Folate Today N39.0 - Urinary tract infection, site not specified Lipid Panel Today E78.00 - Pure hypercholesterolemia, unspecified, N39.0 - Urinary tract infection, site not specified Referrals Urology Referral N39.0 - Urinary tract infection, site not specified, N40.1 - Benign prostatic hyperplasia with lower urinary tract symptoms Medications: New nitrofurantoin macrocrystal must administer with a meal/food 100 mg PO BEDTIME 30 caps 0RF N39.0 - Urinary tract infection, site not specified fluticasone furoate-vilanterol 100-25 mcg/dose 1 ea PO DAILY 60 ea 3RF ipratropium-albuterol 20-100 mcg/actuation (Combivent Respimat) 1 puff inhalation Q4H 4 grams 0RF Changed From mirtazapine (Remeron) 15 mg PO BEDTIME 90 tabs 0RF To mirtazapine 30 mg PO BEDTIME 30 tabs 1RF Refilled apixaban (Eliquis) 5 mg PO BID 60 tabs 3RF I48.0 - Paroxysmal atrial fibrillation olanzapine 2.5 mg PO DAILY 30 days 30 tabs 6RF F41.1 - Generalized anxiety disorder apixaban (Eliquis) 5 mg PO BID 60 tabs 3RF I48.0 - Paroxysmal atrial fibrillation atorvastatin 20 mg PO BEDTIME 90 days 90 tabs 1RF atorvastatin 20 mg PO BEDTIME 90 days 90 tabs 1RF cyanocobalamin (vitamin B-12) (Vitamin B-12) 1,000 mcg PO DAILY 30 days 30 tabs 11RF diltiazem HCl ER 180 mg PO DAILY 30 caps 3RF I48.0 - Paroxysmal atrial fibrillation gabapentin 100 mg PO DAILY 90 caps 3RF tamsulosin 0.4 mg PO DAILY 90 days 90 caps 1RF Coding Level of Care Code Est Pt Prev Care >65y(03262) Diagnoses Annual physical exam Z00.00 Chronic indwelling Sauceda catheter Z97.8 Recurrent UTI N39.0 Dementia F03.90 BPH loc w urin obs/LUTS N40.1 Essential hypertension I10 Hypertension type: essential hypertension Pulmonary emphysema, unspecified emphysema type J43.9 COPD type: emphysema Emphysema type: unspecified Paroxysmal atrial fibrillation I48.0 High cholesterol E78.00
== END 2023-11-05 17:17 | disposition home or self-care (01) ==
PROVIDERS: PCP Internal Medicine; Visit Provider Internal Medicine
DX: Z00.00 Encounter for general adult medical examination without abnormal findings (principal); F03.90 Unspecified dementia, unspecified severity, without behavioral disturbance, psychotic disturbance, mood disturbance, and anxiety; J43.9 Emphysema, unspecified; I48.0 Paroxysmal atrial fibrillation; Z97.8 Presence of other specified devices; N39.0 Urinary tract infection, site not specified; N40.1 Benign prostatic hyperplasia with lower urinary tract symptoms; I10 Essential (primary) hypertension; E78.00 Pure hypercholesterolemia, unspecified
CPT/HCPCS: 99397

== ENCOUNTER 2024-09-14 09:10 | Outpatient (AMB) | payer MEDICARE, SELFPAY ==
[2024-09-14 09:39] VITALS: BP 150/90; PULSE 82; O2SAT 96
--- NOTE | 2024-09-14 09:39 | MHC.PC.OV ---
Vital Signs 09/14/24 09:39 Height 5 ft 11 in BP 150/90 H Blood Pressure Location Lt brachial Position Sitting Pulse 82 Pulse Source Pulse Oximeter Pulse Oximetry (%) 96 Oxygen Delivery Method Room Air Intake Visit Reasons: [employer] 09/01 diarrhea Intake Note: The patient is here with her son for follow-up after a visit to the [facility] Emergency Department. A referral will be needed, and an antibiotic may be required for a suspected UTI. 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 Pt was admitted at [facility] on 08/25/24 and discharged home on 09/01/24 due to UTI. Pt has h/o chronic recurrent UTIs and has a chronic Sauceda catheter due to BPH. He is being followed by [facility], but not clear when was last time he was seen there. Pt has multiple ED visits for this Recurrent UTI. Pt was told he has invasive Adenocarcinoma Colon CA back in March 2024. Patient was told that he was not a good candidate for Chemo due to his multiple comorbidities. It is not clear what happened to follow up with Oncology - Patient's Son reports that he works fulltime and it is difficulty to bring patient to multiple appointments. Son asking for the patient to be referred to Oncology for f/u. [facility] Medical History (Updated 09/14/24 @ 12:45 by Bonita Causey NP) Dyslipidemia B12 deficiency Paroxysmal atrial fibrillation Degenerative disc disease, lumbar Degenerative disc disease, cervical Peripheral vascular disease AAA (abdominal aortic aneurysm) Hypertension High cholesterol Enlarged prostate Sauceda catheter in place Emphysema of lung COPD (chronic obstructive pulmonary disease) UTI (urinary tract infection) Surgical History History of AAA (abdominal aortic aneurysm) repair History of cataract surgery History of tonsillectomy History of neck surgery Family History Father Lung cancer Mother No problems noted. Family/Other Brain cancer Stroke CVD (cerebrovascular disease) Social History Housing: Apartment Alcohol intake: current Alcohol intake frequency: does not drink Patient Tobacco Use Status: Former Tobacco user Years Smoked: stopped 2015 Second Hand Smoke Exposure: Yes Advance Directives Date on File: 07/24/05 service: No Current occupational status: retired Cognitive needs: No Hearing needs: No Vision needs: Yes Questionnaire Thrive Questionnaire Date Thrive assessed: 09/14/24 I am a: Patient What is your living situation today?: I have a steady place to live Within the past 12 months, did the food you bought not last and you didn't have the money to get more?: Never true Within the past 12 months, did you worry whether your food would run out before you got money to buy more?: Never true Do you have trouble paying for medicines?: No Do you have trouble getting transportation to medical appointments?: No Do you have trouble paying your heating and electricity bill?: No Do you have trouble taking care of your child, family member or friend?: No Do you have trouble with day-to-day activities such as bathing, preparing meals, shopping, managing finances, etc.?: No Are you currently unemployed and looking for a job?: No Are you interested in more education?: No Please select the resources that you would like help with: None Currently or been in a relationship where the following occur: No concerns reported THRIVE Score: 0 AUDIT C Alcohol Use Questionnaire (AUDIT-C) 1. How often do you have a drink containing alcohol?: Never 3. How often do you have six or more drinks on one occasion?: Never Total Score: 0 KOTA-7 AMB Questionnaire KOTA-7 Date KOTA - 7 assessed: 11/05/23 Source: Developed by Drs. Patrick Garcia, Brinda Villalba, Joe Frankel and colleagues, with an educational brenda from [employer]. Review of Systems Const All systems reviewed & are unremarkable except as noted in HPI and below Physical exam (Primary Care) Vital Signs: Last Vital Signs Pulse 82 09/14/24 09:39 BP 150/90 H 09/14/24 09:39 Pulse Ox 96 09/14/24 09:39 Oxygen Delivery Method Room Air 09/14/24 09:39 Tobacco/Smoking Status: Tobacco use Status Tobacco use date assessed 11/05/23 09/14/24 09:39 Patient Tobacco Use Status Former Tobacco user 09/14/24 09:39 Thrive Assessment: Date of Thrive Assessment Date Thrive assessed 09/14/24 09/14/24 09:57 Currently or been in a relationship where the following occur: No concerns reported Const General: no acute distress Limitations: wheelchair Resp Effort & Inspection: normal respiratory effort Auscultation: clear to auscultation bilaterally Cardio Heart sounds: S1 normal heart sound present and S2 normal heart sound present Office Procedures Flu Questionnaire Does the patient have a severe egg allergy?: No Does the patient have severe life threatening allergies?: No Does the patient have a fever or illness today?: No Has the patient ever had Guillain-Mina Syndrome?: No Has the patient ever had any past reaction to a flu shot?: No Immunizations Fluarix Triv [id number] (PF) 45 mcg (15 mcg x 3)/0.5 mL IM syringe Performing Provider: Bonita Causey NP [facility] Administered by: SHIRLEY Ariza on 09/14/24 09:56 Dose Route Admin Location Dispensed Lot Number Expiration Date [facility] Internal Communications Specialist 0.5 mL IM Left Deltoid 0.5 mL [id number] 04/17/25 [id number] [employer] VIS Given Date VIS Provided VIS Publication Date 09/14/24 Single Vaccine 21 Eligibility Eligibility Date Funding Source Not [facility] Eligible 09/14/24 Private Coding Level of Care Code Est Pt Level 4 (04361) Diagnoses 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 But today Son asking to be referred to Oncology. Code(s): C17.0 - Malignant neoplasm of duodenum Category: Medical Plan: Referred to [facility]. (2) Recurrent UTI: Code(s): N39.0 - Urinary tract infection, site not specified Category: Medical Plan: Managed by Urology (3) Chronic indwelling Sauceda catheter: Code(s): Z97.8 - Presence of other specified devices Category: Medical Plan: Managed by urology. Orders: Orders Influenza [id number] Immunization Today Z23 - Encounter for immunization Referrals Surgical Oncology Referral C17.0 - Malignant neoplasm of duodenum Medications: New sulfamethoxazole-trimethoprim 800-160 mg (Bactrim DS) 1 tab PO BID 7 days 14 tabs 0RF N39.0 - Urinary tract infection, site not specified
== END 2024-09-14 10:32 | disposition home or self-care (01) ==
PROVIDERS: PCP Internal Medicine; Visit Provider Nurse Practitioner Family
DX: C17.0 Malignant neoplasm of duodenum (principal); N39.0 Urinary tract infection, site not specified; Z97.8 Presence of other specified devices; Z23 Encounter for immunization

== ENCOUNTER → 2024-09-14 09:10 | Outpatient (BNVA) | payer MEDICARE, SELFPAY | PROVIDERS: PCP Internal Medicine; Visit Provider Nurse Practitioner Family | DX: Z23 Encounter for immunization (principal); C17.0 Malignant neoplasm of duodenum; N39.0 Urinary tract infection, site not specified; Z97.8 Presence of other specified devices | CPT/HCPCS: 90471; 90656; 99212 ==

== ENCOUNTER → 2024-10-28 13:08 | Outpatient (BNV) | payer MEDICARE, SELFPAY | PROVIDERS: PCP Internal Medicine; Referring Provider Internal Medicine; Visit Provider Internal Medicine | DX: C17.0 Malignant neoplasm of duodenum (principal) | CPT/HCPCS: 99204; G2211 ==

== ENCOUNTER 2024-11-03 14:02 | Outpatient (AMB) | payer MEDICARE, SELFPAY ==
--- NOTE | 2024-11-03 14:05 | MHC.OFFVIS ---
Vital Signs 11/03/24 14:06 Height 6 ft 1 in BMI Reason not done Patient refused/unable BP not taken reason Medical Reason Intake Visit Reasons: Sigmoid colon cancer Intake Note: This patient was referred by for Sigmoid colon cancer. Pt c/o; no concerns. Technical Service Specialist Required: No Accompanied by: Son-Max Allergies No Known Allergies Allergy (Verified 11/03/24 14:11) Medication List - Last Reconciled 11/03/24 by Dean Abreu MD apixaban (Eliquis) 5 mg PO BID aspirin 162 mg PO DAILY atorvastatin 20 mg PO BEDTIME 90 days catheter (Sauceda Catheter) As directed [CHOCOLATE ENSURE As directed] cyanocobalamin (vitamin B-12) (Vitamin B-12) 1,000 mcg PO DAILY 30 days diltiazem HCl ER 180 mg PO DAILY fluticasone furoate-vilanterol 100-25 mcg/dose 1 ea PO DAILY [Sauceda catheter As directed] gabapentin 100 mg PO DAILY ipratropium-albuterol 20-100 mcg/actuation (Combivent Respimat) 1 puff inhalation Q4H mirtazapine 30 mg PO BEDTIME nitrofurantoin macrocrystal 100 mg PO BEDTIME olanzapine 2.5 mg PO DAILY 30 days sulfamethoxazole-trimethoprim 800-160 mg (Bactrim DS) 1 tab PO BID 7 days tamsulosin 0.4 mg PO DAILY 90 days HPI HPI Sigmoid colon cancer: Details: 74-year-old male with multiple medical problems including atrial fibrillation, on anticoagulation, history of AAA status post endovascular repair, dementia, BPH with the indwelling catheter, recurrent UTIs, COPD with chronic hypoxic respiratory failure, on oxygen, referred to me for a sigmoid cancer Apparently, he had a colonoscopy done in [facility] a few months ago showing invasive adenocarcinoma. He is being cared for by his son who makes decisions for him. His son says that they went to [facility] for surgery but they said that the surgery could not be done there because of insurance issues. The had gone to [facility] but they will told that the would not do the surgery in [facility] because of his overall condition The patient has dementia to a certain certain extent although does answer very simple questions. He is able to stand up and walk very short distances but is more or less wheelchair-bound He is chronically short of breath. He has a very poor baseline level of activity. There is no history of rectal bleeding . It was not seem to have any significant GI complaints. He is tolerating diet. He denies abdominal pain. The patient also has a history of duodenal polyp and there was a question of this being an adenocarcinoma as well. However the son says that they were told that this was benign. [facility] Medical History (Updated 11/03/24 @ 14:43 by Dean Abreu MD) Cancer of sigmoid Dyslipidemia B12 deficiency Paroxysmal atrial fibrillation Degenerative disc disease, lumbar Degenerative disc disease, cervical Peripheral vascular disease AAA (abdominal aortic aneurysm) Hypertension High cholesterol Enlarged prostate Sauceda catheter in place Emphysema of lung COPD (chronic obstructive pulmonary disease) UTI (urinary tract infection) Surgical History History of AAA (abdominal aortic aneurysm) repair History of cataract surgery History of tonsillectomy History of neck surgery Family History Father Lung cancer Mother No problems noted. Family/Other Brain cancer Stroke CVD (cerebrovascular disease) Social History Household Members: Children Housing: Apartment Alcohol intake: current Alcohol intake frequency: does not drink Patient Tobacco Use Status: Former Tobacco user Years Smoked: stopped 2015 Second Hand Smoke Exposure: Yes Advance Directives Date on File: 07/24/05 service: No Current occupational status: retired Gender identity: Male Cognitive needs: No Hearing needs: No Vision needs: Yes Review of Systems Const Denies chills and Denies fever(s) Card Denies chest pain Resp Denies cough GI Denies abdominal pain and Denies hematochezia Details: Recurrent UTIs, BPH with retention Physical Exam Const Other: Very frail looking, on wheelchair, appearing a little short of breath Resp Other: Mildly short of breath Cardio Rhythm: abnormal rhythm GI Palpation (GI): Soft to palpation, not firm, nontender and no guarding Other: Has indwelling catheter Assessment & Plan Assessment & Plan (1) Cancer of sigmoid: Code(s): C18.7 - Malignant neoplasm of sigmoid colon Category: Medical Plan: Review of records show that he was diagnosed to have sigmoid cancer on colonoscopy last year. However, he could not have the procedure done in [facility] apparently because of insurance issues. Furthermore, the patient says he does not want to go back to [facility] He was referred to [facility] but they had stated that they would not do the procedure at [facility]. I do agree that the patient was multiple medical problems and has a very poor frailty index score. He presents with significant perioperative risks. I explained to the son that his overall medical condition may be prohibitive for colon resection. The son however says that he wants to keep his father alive. I did offer to help them with a 2nd opinion in [facility] if they were willing to. The son says to go ahead with this referral as he says that he was willing to bring the patient to [place]. I have also discussed the above with Dr. John of Oncology. Coding Level of Care Code New Pt Level 4 (23136) Diagnoses Cancer of sigmoid C18.7
== END 2024-11-03 14:28 | disposition home or self-care (01) ==
PROVIDERS: PCP Internal Medicine; Visit Provider Surgery
DX: C18.7 Malignant neoplasm of sigmoid colon (principal)
CPT/HCPCS: 99204

== ENCOUNTER → 2024-11-03 14:02 | Outpatient (BNVA) | payer MEDICARE, SELFPAY | PROVIDERS: PCP Internal Medicine; Visit Provider Surgery | DX: C18.7 Malignant neoplasm of sigmoid colon (principal) | CPT/HCPCS: 99202 ==